=== PATIENT | male | born 1955 | race Caucasian/White ===

== ENCOUNTER → 2019-11-19 | Outpatient (CLI) | payer MEDICARE ==
--- NOTE | 2019-11-19 16:26 | MR ---
EXAMINATION TYPE: MR brain wo/w con DATE OF EXAM: 11/19/2019 COMPARISON: None HISTORY: Left hemiparesis, dizziness, hx stroke CONTRAST: Performed utilizing 10 mL intravenous Gadavist gadolinium contrast. TECHNIQUE: Multiplanar, multiecho imaging on a 3.0 Pari magnet is performed through the brain. Stud y is performed within 24 hours of arrival to the hospital. The craniovertebral junction is normal. The pituitary is normal. Optic chiasm is visualized is norm al Diffusion-weighted imaging is performed. No abnormal hyperintensity is present to suggest an acute i ntracranial infarct or acute ischemic change. There is an old infarct through the right watershed region. Ex vacuo effect may be present nearby sul ci and lateral ventricle. White matter changes are present within the residual brain. Scattered periventricular white matter hyperintensity is present which is nonspecific but can be comp atible with chronic white matter ischemic type changes. Ventricles and sulci are appropriate for the patient age. No abnormal enhancement is evident following contrast administration. There is significant fluid within mastoid air cells. Correlate for bilateral mastoiditis, worse on th e left. Paranasal sinuses have some mucosal thickening within ethmoid air cells and to a minimal degr ee the frontal sinuses. Remaining paranasal sinuses are clear. IMPRESSIONS: 1. Old right watershed infarct with some adjacent chronic appearing white matter ischemic changes. 2. Mild periventricular white matter ischemic changes. 3. No suspicious acute intracranial changes.
== END | disposition home or self-care (01) ==
LOC: RADMRIMAIN 07:54
PROVIDERS: ATTEND Internal Medicine Geriatric Medicine
DX: I63.89 Other cerebral infarction (principal); R90.82 White matter disease, unspecified
CPT/HCPCS: 70553; A9585

== ENCOUNTER → 2021-09-28 | Outpatient (CLI) | payer MEDICARE ==
--- NOTE | 2021-09-28 11:34 | US ---
EXAMINATION TYPE: US venous doppler duplex LE RT DATE OF EXAM: 09/28/2021 11:08 AM COMPARISON: NONE CLINICAL HISTORY: M79.604 PAIN IN RIGHT LEG. SIDE PERFORMED: Right TECHNIQUE: The lower extremity deep venous system is examined utilizing real time linear array sonog erich with graded compression, doppler sonography and color-flow sonography. VESSELS IMAGED: Common Femoral Vein Deep Femoral Vein Greater Saphenous Vein * Femoral Vein Popliteal Vein Small Saphenous Vein * Proximal Calf Veins (* superficial vessels) Right Leg: Negative for DVT IMPRESSION: No evidence for DVT at this time.
--- NOTE | 2021-09-28 11:54 | XR ---
EXAMINATION TYPE: XR knee complete RT DATE OF EXAM: 09/28/2021 CLINICAL HISTORY: pain TECHNIQUE: Three views of the right knee are obtained. COMPARISON: None. FINDINGS: There is no acute fracture/dislocation. The tri-compartment joint spaces appear within no rmal limits. The overlying soft tissue appears unremarkable. IMPRESSION: There is no acute fracture or dislocation.ICD 10 NO FRACTURE, INITIAL EVALUATION
== END | disposition home or self-care (01) ==
LOC: RADUSWWP 11:06
PROVIDERS: ATTEND Family Medicine
DX: M79.604 Pain in right leg (principal)

== ENCOUNTER → 2023-04-11 | Outpatient (CLI) | payer MEDICARE ==
--- NOTE | 2023-04-11 11:16 | XR ---
EXAMINATION TYPE: XR chest 2V DATE OF EXAM: 04/11/2023 11:07 AM CLINICAL INDICATION:Male, 68 years old with history of Z86.16 Personal hx of Covid; [facility] COMPARISON: Chest radiographs from 04/11/2023. TECHNIQUE: XR chest 2V Frontal and lateral views of the chest. FINDINGS: Lungs/Pleura: There is no evidence of pleural effusion, focal consolidation, or pneumothorax. Pulmonary vascularity: Unremarkable. Heart/mediastinum: Cardiomediastinal silhouette is enlarged and stable. Musculoskeletal: No acute osseous pathology. IMPRESSION: Chronic changes without acute pulmonary process. No significant change from prior.
== END | disposition home or self-care (01) ==
LOC: RADXRMAIN 10:44
PROVIDERS: ATTEND Internal Medicine Geriatric Medicine
DX: J98.4 Other disorders of lung (principal); Z86.16 Personal history of COVID-19
CPT/HCPCS: 71046

== ENCOUNTER 2024-03-04 07:12 | Inpatient (IN) | payer MEDICARE ==
[2024-03-04] MEDS: methylPREDNISolone SOD SUCCI 125 MG/2 ML VIAL IV STA (08:18)
[2024-03-04] MEDS: methylPREDNISolone SOD SUCCI 125 MG/2 ML VIAL IM ONE (08:19)
[2024-03-04] MEDS: ALBUTEROL HFA INHALER INHALATION STA (08:23)
--- NOTE | 2024-03-04 08:26 | ED ---
SOB HPI - General Source: patient Mode of arrival: ambulatory Limitations: no limitations - History of Present Illness MD Complaint: shortness of breath, pain with inspiration Onset/Timin -: days(s) <Nickolas Caballero - Last Filed: 03/04/24 16:54> <PawelalisonJuliette Ani - Last Filed: 03/05/24 08:42> - General Chief Complaint: Shortness of Breath Stated Complaint: Covid+ - History of Present Illness Initial Comments: This is a 69-year-old male presenting with shortness of breath, wheezing, fatigue and reproducible central chest pain with cough and deep inspiration x 5 days. Patient endorses recent return from [facility] around the time symptoms started. Patient endorses who tested positive for COVID-19 having symptoms several days prior to start of his symptoms. Patient endorses seeing primary care provider who provided azithromycin and prednisone patient noting ongoing symptoms despite near completion of regiment. Patient denies fever, chills, body aches, nasal congestion, sore throat, hemoptysis, N/V/D, headache. ( Nickolas Caballero) - Related Data Home Medications Medication Instructions Recorded Confirmed Atorvastatin [Lipitor] 40 mg PO DAILY 03/04/24 03/04/24 Azithromycin [Zithromax Z Pack] See Taper PO DIRECTED 03/04/24 03/04/24 Citalopram Hydrobromide [CeleXA] 40 mg PO DAILY 03/04/24 03/04/24 Codeine Phosphate/Guaifenesin 5 ml PO Q6H PRN 03/04/24 03/04/24 [Codeine Phosphate/Guaifenesin 10-100 mg/5 ml] Fluorouracil 5% Cream 1 dose TOPICAL DIRECTED 03/04/24 03/04/24 Fluticasone Nasal [place] [Flonase 2 spray EA NOSTRIL DAILY PRN 03/04/24 03/04/24 Nasal [place]] Meloxicam [Mobic] 7.5 mg PO BID 03/04/24 03/04/24 Montelukast [Singulair] 10 mg PO HS 03/04/24 03/04/24 Propranolol HCl [Propranolol HCl 80 mg PO DAILY 03/04/24 03/04/24 ER] Triamcinolone 0.5% Cream [Kenalog 1 applic TOPICAL Q72H PRN 03/04/24 03/04/24 0.5% Cream] metFORMIN HCL 500 mg PO BID 03/04/24 03/04/24 predniSONE [Deltasone] 40 mg PO DAILY 03/04/24 03/04/24 rOPINIRole HCL [Requip] 1 mg PO BID 03/04/24 03/04/24 Previous Rx's Medication Instructions Recorded Albuterol Inhaler [Ventolin Hfa 1 - 2 puff INHALATION Q6H PRN #1 03/04/24 Inhaler] each predniSONE 10 mg PO DIRECTED #20 tab 03/04/24 Allergies Allergy/AdvReac Type Severity Reaction Status Date / Time No Known Allergies Allergy Verified 03/04/24 11:10 Review of Systems ROS Other: All systems not noted in ROS Statement are negative. <Nickolas Caballero - Last Filed: 03/04/24 16:54> ROS Other: All systems not noted in ROS Statement are negative. <Juliette Boone - Last Filed: 03/05/24 08:42> ROS Statement: Those systems with pertinent positive or pertinent negative responses have been documented in the HPI. Past Medical History Past Medical History: CVA/TIA, Hyperlipidemia, Hypertension, Neurologic Disorder Additional Past Medical History / Comment(s): Neuropathy, allergies Past Surgical History: Cholecystectomy, Orthopedic Surgery Past Psychological History: Depression Smoking Status: Former smoker Past Alcohol Use History: Occasional Past Drug Use History: None Reported <Nickolas Caballero - Last Filed: 03/04/24 16:54> General Exam Limitations: no limitations General appearance: alert, in no apparent distress Head exam: Present: atraumatic, normocephalic, normal inspection Eye exam: Present: normal appearance, PERRL, EOMI. Absent: scleral icterus, conjunctival injection, periorbital swelling ENT exam: Present: normal exam, mucous membranes moist Neck exam: Present: normal inspection. Absent: tenderness, meningismus, lymphadenopathy Respiratory exam: Present: wheezes, rhonchi, decreased breath sounds (Diminished breath sounds with coarse rhonchi, expiratory wheezing and prolonged expiration noted in all [place]), prolonged expiratory. Absent: respiratory distress, rales, stridor Cardiovascular Exam: Present: regular rate, normal rhythm, normal heart sounds. Absent: systolic murmur, diastolic murmur, rubs, gallop, clicks GI/Abdominal exam: Present: soft, normal bowel sounds. Absent: distended, tenderness, guarding, rebound, rigid Extremities exam: Present: normal inspection, full ROM, normal capillary refill. Absent: tenderness, pedal edema, joint swelling, calf tenderness Back exam: Present: normal inspection Neurological exam: Present: alert, oriented X3, CN II-XII intact Psychiatric exam: Present: normal affect, normal mood Skin exam: Present: warm, dry, intact, normal color. Absent: rash <Nickolas Caballero - Last Filed: 03/04/24 16:54> Course Vital Signs 03/04/24 03/04/24 03/04/24 07:20 08:04 08:48 Temperature 97.9 F 98.4 F Pulse Rate 48 L 54 L 46 L Respiratory 20 24 22 Rate Blood Pressure 201/91 188/117 179/85 O2 Sat by Pulse 94 L 93 L 93 L Oximetry 03/04/24 03/04/24 03/04/24 09:08 09:21 09:29 Temperature Pulse Rate 54 L 50 L 53 L Respiratory 24 Rate Blood Pressure O2 Sat by Pulse 96 Oximetry 03/04/24 03/04/24 03/04/24 09:45 09:57 10:36 Temperature Pulse Rate 51 L 49 L Respiratory 20 20 Rate Blood Pressure 172/89 O2 Sat by Pulse 95 Oximetry 03/04/24 03/04/24 03/04/24 10:45 11:00 12:04 Temperature Pulse Rate 49 L 50 L 46 L Respiratory 18 18 Rate Blood Pressure 171/91 110/92 O2 Sat by Pulse 96 89 L Oximetry 03/04/24 03/04/24 03/04/24 16:07 20:22 20:30 Temperature 98.3 F Pulse Rate 55 L 55 L Respiratory 18 20 21 Rate Blood Pressure 174/90 189/97 O2 Sat by Pulse 94 L 92 L Oximetry Medical Decision Making - Lab Data Result diagrams: 03/04/24 15:43 03/04/24 15:43 <Nickolas Caballero - Last Filed: 03/04/24 16:54> - Lab Data Result diagrams: 03/05/24 03:14 03/04/24 15:43 <Juliette Boone - Last Filed: 03/05/24 08:42> - Medical Decision Making Was pt. sent in by a medical professional or institution (Dr., PA, PARTNER MANAGEMENT CONSULTANT, urgent care, hospital, or senior care...) When possible be specific @ -No Did you speak to anyone other than the patient for history (EMS, parent, family, police, friend...)? What history was obtained from this source @ -No Did you review nursing and triage notes (agree or disagree)? Why? @ -I reviewed and agree with nursing and triage notes Were old charts reviewed (outside hosp., previous admission, EMS record, old EKG, old radiological studies, urgent care reports/EKG's, senior care records)? Report findings @ -No old charts were reviewed Differential Diagnosis (chest pain, altered mental status, abdominal pain women, abdominal pain men, vaginal bleeding, weakness, fever, dyspnea, syncope, headache, dizziness, GI bleed, back pain, seizure, CVA, palpatations, mental health, musculoskeletal)? @ -Upper respiratory infection, COVID-19, influenza, bronchitis, pneumonia, tuberculosis, croup EKG interpreted by me (3pts min.). @ -Not done X-rays interpreted by me (1pt min.). @ -Chest x-ray reveals no focal consolidation or other concerning findings. CT interpreted by me (1pt min.). @ -None done U/S interpreted by me (1pt. min.). @ -None done What testing was considered but not performed or refused? (CT, X-rays, U/S, labs)? Why? @ -None What meds were considered but not given or refused? Why? @ -None Did you discuss the management of the patient with other professionals (professionals i.e. KALEY Rosario, PARTNER MANAGEMENT CONSULTANT, lab, RT, psych nurse, social security benefits interviewer, final dressing cutter, teacher, licensed loan officer, caser up)? Give summary @ -Spoke to patient's primary care Dr. Garza who advised continue Solu-Medrol 40 mg IV every 6-8 hours and appropriately manage nasal cannula O2 concentration to maintain oxygen saturation. Was smoking cessation discussed for >3mins.? @ -No Was critical care preformed (if so, how long)? @ -No Were there social determinants of health that impacted care today? How? (Homelessness, low income, unemployed, alcoholism, drug addiction, transportation, low edu. Level, literacy, decrease access to med. care, fdc, rehab)? @ -No Was there de-escalation of care discussed even if they declined (Discuss DNR or withdrawal of care, Hospice)? DNR status @ -No What co-morbidities impacted this encounter? (DM, HTN, Smoking, COPD, CAD, Cancer, CVA, ARF, Chemo, Hep., AIDS, mental health diagnosis, sleep apnea, morbid obesity)? @ -None Was patient admitted / discharged? Hospital course, mention meds given and route, prescriptions, significant lab abnormalities, going to OR and other pertinent info. @ -Admitted. Safa test negative chest x-ray unremarkable. Patient notes improvement with Solu-Medrol IM and nasal cannula at 2 L. DuoNeb nebulized treatment performed after confirming negative COVID test. Patient notes improved work of breathing following treatments. Prednisone taper sent to pharmacy. Patient continues to have SpO2 between 88 and 92% on nasal cannula supplementation despite previous medications given patient will be admitted due to ongoing hypoxemia despite interventions. Undiagnosed new problem with uncertain prognosis? @ -Yes. Hypoxemia Drug Therapy requiring intensive monitoring for toxicity (Heparin, Nitro, Insulin, Cardizem)? @ -No Were any procedures done? @ -No Diagnosis/symptom? @ -Acute bronchitis, hypoxemia Acute, or Chronic, or Acute on Chronic? @ -Acute Uncomplicated (without systemic symptoms) or Complicated (systemic symptoms)? @ -Complicated Side effects of treatment? @ -No Exacerbation, Progression, or Severe Exacerbation? @ -No Poses a threat to life or bodily function? How? (Chest pain, [place], IA, pneumonia, PE, COPD, DKA, ARF, appy, cholecystitis, CVA, Diverticulitis, Homicidal, Suicidal, threat to staff... and all critical care pts) @ -No (Nickolas Caballero) - Lab Data Lab Results 03/04/24 Range/Units 08:13 Influenza Type A (PCR) Not Detected (Not Detectd) Influenza Type B (PCR) Not Detected (Not Detectd) RSV (PCR) Not Detected (Not Detectd) SARS-CoV-2 (PCR) Not Detected (Not Detectd) Disposition Is patient prescribed a controlled substance at d/c from ED?: No Time of Disposition: 11:46 Decision Date: 03/04/24 Decision Time: 13:15 <Nickolas Caballero - Last Filed: 03/04/24 16:54> <Juliette Boone - Last Filed: 03/05/24 08:42> Clinical Impression: Bronchitis, Hypoxemia Disposition: ADMITTED IP TO THIS HOSP Condition: Fair
--- NOTE | 2024-03-04 08:57 | XR ---
EXAMINATION TYPE: XR chest 2V DATE OF EXAM: 03/04/2024 COMPARISON: 04/11/2023 HISTORY: Shortness of breath TECHNIQUE: Frontal and lateral views of the chest are obtained. FINDINGS: Scattered senescent parenchymal changes noted. Hyperinflation compatible with COPD. No evidence for infiltrate. No evidence for atelectasis. Heart size is stable. Mediastinal structures are stable and grossly unremarkable. No evidence for hilar prominence. Degenerative changes dorsal spine. IMPRESSION: 1. No evidence for acute pulmonary disease. [facility], , 03/04/2024 8:55 AM
[2024-03-04] MEDS: IPRATROPIUM-ALBUTEROL 3 ML NEB INHALATION STA (09:21)
[2024-03-04] MEDS: ALBUTEROL NEBULIZED 2.5 MG/3 ML INHALATION STA (10:36)
[2024-03-04] MEDS: methylPREDNISolone SOD SUCCI 40 MG/ML 1 ML VIAL IV SCH (16:09)
[2024-03-04 16:23] LABS: Basophils % (A) 0 %; Eosinophils % (A) 0 %; HCT 47.7 % (39.0-53.0); HGB 16.3 gm/dL (13.0-17.5); Lymphocytes # (A) 1.1 k/uL (1.0-4.8); Lymphocytes % (A) 12 %; MCH 32.8 pg (25.0-35.0); MCHC 34.2 g/dL (31.0-37.0); MCV 95.8 fL (80.0-100.0); Mean Platelet Volume 10.4; Monocytes # (A) 0.2 k/uL (0-1.0); Monocytes % (A) 2 %; Neutrophils # (A) 8.2 k/uL (1.3-7.7); Neutrophils % (A) 86 %; Platelet Count 200 k/uL (150-450); RBC 4.97 m/uL (4.30-5.90); RDW 13.5 % (11.5-15.5); WBC 9.6 k/uL (3.8-10.6)
[2024-03-04 16:27] LABS: ALT 47 U/L (4-49); AST 35 U/L (17-59); African American GFR (CKD) >90 (>60 ml/min/1.73 sqM); Albumin 4.4 g/dL (3.5-5.0); Alkaline Phosphatase 76 U/L (38-126); Anion Gap 14 mmol/L; Blood Urea Nitrogen 19 mg/dL (9-20); Calcium 9.2 mg/dL (8.4-10.2); Carbon Dioxide 20 mmol/L (22-30); Chloride 104 mmol/L (98-107); Glucose 216 mg/dL (74-99); Non-African American GFR(CKD) >90 (>60 ml/min/1.73 sqM); Sodium 138 mmol/L (137-145); Total Bilirubin 0.9 mg/dL (0.2-1.3); Total Protein 7.1 g/dL (6.3-8.2)
[2024-03-04] MEDS: AZITHROMYCIN 500 MG TAB PO SCH (17:25)
[2024-03-04] MEDS: metFORMIN 500 MG TAB PO SCH (17:32)
[2024-03-04] MEDS: MAGNESIUM SULFATE-D5W PMX 1 GM in DEXTROSE/WATER 1 100ML.BAG IVPB ONE (18:42)
[2024-03-04] MEDS: FUROSEMIDE 10 MG/ML 2 ML VIAL IV ONE (19:36)
[2024-03-04 20:52] LABS: Glucose,Whole Blood 174 mg/dL (70-110)
[2024-03-04] MEDS: MONTELUKAST 10 MG TAB PO SCH (21:29)
[2024-03-04] MEDS: MELOXICAM 7.5 MG TAB PO SCH (21:30)
[2024-03-04] MEDS: INSULIN ASPART (NovoLOG) 100 UNIT/ML VIAL SQ SCH ×2 (21:31→22:16)
[2024-03-04] MEDS: hydrALAZINE HCL 25 MG TAB PO PRN (21:55)
[2024-03-04] MEDS: ZOLPIDEM 5 MG TAB PO SCH (21:55)
--- NOTE | 2024-03-04 22:22 | P.HPIM ---
History of Present Illness H&P Date: 03/04/24 Chief Complaint: Severe dyspnea and shortness of breath with severe hypoxia HISTORY OF PRESENT ILLNESS: 69-year-old with active medical history of CVA with right-sided weakness, hypertension, hyperlipidemia, mild arrhythmia, obstructive sleep apnea, mild tremor, hyperglycemia, who also has mild BPH and mild osteoarthritis was apparently clip to systole easily this last week when he becomes slightly with symptomatic for the last 5 days with mild shortness of breath cough and wheezes with mild nausea and fatigue tiredness. Patient's become symptomatic as well and tested positive for COVID-19 patient was not symptomatic at the time. Patient apparently tested negative for COVID-19 1 trial last 24 hours but has been symptomatic for a bit longer time at the time did not have any significant dyspnea more than fatigue tiredness mild cough and URI symptoms like. With the worsening symptoms today not been able to walk or ambulate without severe dyspnea and shortness of breath with worsening cough low-grade temperature and hypoxia ended up coming to the emergency department where was seen and evaluated Lab value shows white blood cell of 9.6 hemoglobin 16.3 hematocrit 47.7 with normal platelet count, electrolyte panel did not show any major abnormality except blood sugar 216 normal BNP normal liver function test. Serology for influenza A and influenza B along with RSV and SARS were all negative. After few rounds of updraft treatment continue to have tightness wheezy and significant shortness of breath ended up coming to the emergency department him and his were he was seen and evaluated surprisingly his pulse ox initially was in the 80s despite oxygen, pulse rate jumped over the map with the adjusted dose of O2, working hard to keep pulse ox above 95 percentile. REVIEW OF SYSTEMS: CONSTITUTIONAL: Well-developed no acute respiratory distress. EYES: No icterus sclerae, no conjunctivitis. EARS, NOSE, MOUTH, THROAT, and FACE: No sore throat, lymphadenopathy, carotid bruits or deformity. RESPIRATORY: Decreased breath sound bilaterally with rhonchi and crackles CARDIOVASCULAR: No CP, Palpitation, PND, Orthopnea, or angina. GASTROINTESTINAL: No Abd pain, Nausea or vomiting, no Diarrhea or constipation, No GI Bleed, no distention or masses. GENITOURINARY: Negative for Hematuria or UTI, no kidney stones. INTEGUMENT/BREAST: Negative for any muscular injury with mild osteoarthritis.. HEMATOLOGIC/LYMPHATIC: Negative for bleed or purpura. MUSCULOSKELTAL: Negative for Myalgia or arthralgia. NEURLOGICAL: No LOC, Sz or syncope, blurred vision dizziness or abnormality.. BEHAVIORAL/PSYCH: Negative. ENDOCRINE: Negative. PHYSICAL EXAMINATION: General Appearance: Alert, cooperative, no distress, appears stated age. Neck HEENT: Supple, no lymphadenopathy, no thyroid enlargement, no carotid bruits. Lungs: Clear to auscultation without crackles or wheezes no rhonchi, no deformity. Chest Wall: Chest wall normal expansion with deep inspiration no tenderness and no deformity was found on exam, no costochondral pain or discomfort. Heart: Regular rate and rhythm, S1, S2 normal, no murmur, rub or gallop. Back: Symmetric, no curvature, ROM normal, no CVA tenderness. Abdomen: Soft, non-tender, bowel sounds active all four quadrants, no masses, no organomegaly. Extremities: Extremities normal, atraumatic, no cyanosis or edema. Pulses: 2+ and symmetric. Skin: Skin color, texture, tugor normal, no rashes or lesions. Neurologic: Alert oriented x3 cranial nerves II through XII intact, no motor deficit, no abnormal balance or gait. ASSESSMENT AND PLAN: _Severe dyspnea and shortness of breath: Medical etiology most likely residual from COVID-19 infection happened last week, even his test is negative does not exclude the possibility. Specially with the tested positive for COVID-19. _Acute respiratory failure: Most likely secondary to severe bronchitis, mild asthma and COVID-19. _Severe bronchitis: Patient will be continued on azithromycin along with Mucinex. _Mild COPD exacerbation: Continue Solu-Medrol along with O2 titrate dose if needed and keep patient on oral prednisone for the next probably 10 to 12 days. _Essential hypertension: Will continue propranolol HCL 80 mg daily will change medication and add either losartan or hydralazine on as-needed basis. _Type 2 diabetes: Has been well-controlled on metformin 500 mg twice a day to continue Accu-Chek and sliding scales coverage. _Restless leg syndrome: Remain on Requip 1 mg twice a day. _Hyperlipidemia: Continue patient on Lipitor 40 mg daily. _Tremor: Mostly essential tremor, well-controlled on propranolol. _Obstructive sleep apnea: Has been study does not have CPAP yet. _Low-grade polycythemia: Mostly secondary to COPD and probably obstructive sleep apnea treat underlying disease. _GI prophylaxis: Start patient on pantoprazole 40 mg daily. _DVT prophylaxis: Patient be on Lovenox subcutaneous. CODE STATUS: Full code Admit patient to the inpatient service for more than 2 night stay. Past Medical History Past Medical History: CVA/TIA, Hyperlipidemia, Hypertension, Neurologic Disorder Additional Past Medical History / Comment(s): Neuropathy, allergies Past Surgical History: Cholecystectomy, Orthopedic Surgery Past Psychological History: Depression Smoking Status: Former smoker Past Alcohol Use History: Occasional Past Drug Use History: None Reported Medications and Allergies Home Medications Medication Instructions Recorded Confirmed Type Albuterol Inhaler [Ventolin Hfa 1 - 2 puff INHALATION Q6H PRN #1 03/04/24 Rx Inhaler] each Atorvastatin [Lipitor] 40 mg PO DAILY 03/04/24 03/04/24 History Azithromycin [Zithromax Z Pack] See Taper PO DIRECTED 03/04/24 03/04/24 History Citalopram Hydrobromide [CeleXA] 40 mg PO DAILY 03/04/24 03/04/24 History Codeine Phosphate/Guaifenesin 5 ml PO Q6H PRN 03/04/24 03/04/24 History [Codeine Phosphate/Guaifenesin 10-100 mg/5 ml] Fluorouracil 5% Cream 1 dose TOPICAL DIRECTED 03/04/24 03/04/24 History Fluticasone Nasal [place] [Flonase 2 spray EA NOSTRIL DAILY PRN 03/04/24 03/04/24 History Nasal [place]] Meloxicam [Mobic] 7.5 mg PO BID 03/04/24 03/04/24 History Montelukast [Singulair] 10 mg PO HS 03/04/24 03/04/24 History Propranolol HCl [Propranolol HCl 80 mg PO DAILY 03/04/24 03/04/24 History ER] Triamcinolone 0.5% Cream [Kenalog 1 applic TOPICAL Q72H PRN 03/04/24 03/04/24 History 0.5% Cream] metFORMIN HCL 500 mg PO BID 03/04/24 03/04/24 History predniSONE 10 mg PO DIRECTED #20 tab 03/04/24 Rx predniSONE [Deltasone] 40 mg PO DAILY 03/04/24 03/04/24 History rOPINIRole HCL [Requip] 1 mg PO BID 03/04/24 03/04/24 History Allergies Allergy/AdvReac Type Severity Reaction Status Date / Time No Known Allergies Allergy Verified 03/04/24 11:10 Physical Exam Vitals: Vital Signs Temp Pulse Resp BP Pulse Ox 03/04/24 16:07 55 L 18 174/90 94 L 03/04/24 12:04 46 L 18 110/92 89 L 03/04/24 11:00 50 L 18 171/91 96 03/04/24 10:45 49 L 03/04/24 10:36 49 L 03/04/24 09:57 20 03/04/24 09:45 51 L 20 172/89 95 03/04/24 09:29 53 L 03/04/24 09:21 50 L 03/04/24 09:08 54 L 24 96 03/04/24 08:48 46 L 22 179/85 93 L 03/04/24 08:04 98.4 F 54 L 24 188/117 93 L 03/04/24 07:20 97.9 F 48 L 20 201/91 94 L Intake and Output 03/04/24 03/04/24 03/04/24 06:59 14:59 22:59 Other: Weight 104.326 kg Results CBC & Chem 7: 03/04/24 15:43 03/04/24 15:43 Labs: Abnormal Lab Results - Last 24 Hours (Table) 03/04/24 03/04/24 Range/Units 15:43 15:43 Neutrophils # 8.2 H (1.3-7.7) k/uL Carbon Dioxide 20 L (22-30) mmol/L Glucose 216 H (74-99) mg/dL
[2024-03-05 06:16] LABS: Glucose,Whole Blood 213 mg/dL (70-110)
[2024-03-05] MEDS: PROPRANOLOL LA 80 MG CAP.SA.24H PO SCH (08:27)
[2024-03-05] MEDS: ATORVASTATIN 40 MG TAB PO SCH (08:27)
[2024-03-05] MEDS: ENOXAPARIN 40 MG/0.4 ML SYRINGE SQ SCH (08:27)
[2024-03-05] MEDS: CITALOPRAM HYDROBROMIDE 20 MG TAB PO SCH (08:27)
[2024-03-05 08:36] LABS: HCT 45.3 % (39.6-50.0); HGB 15.9 g/dL (13.0-17.0); MCH 32.6 pg (27.0-32.0); MCHC 35.1 g/dL (32.0-37.0); Mean Platelet Volume 12.4 FL (9.5-12.2); NRBC Per 100 WBC 0 X 10*3/uL (0.00-0.01); Platelet Count 211 X 10*3/uL (140-440); RBC 4.87 X 10*6/uL (4.40-5.60); WBC 10.59 X 10*3/uL (4.50-10.00)
[2024-03-05 08:50] LABS: ALT 44 U/L (10-49); AST 26 U/L (14-35); Albumin 4.2 g/dL (3.8-4.9); Albumin/Globulin Ratio 1.75 Ratio (1.60-3.17); Alkaline Phosphatase 85 U/L (41-126); BUN/Creat Ratio 29.62 Ratio (12.00-20.00); Blood Urea Nitrogen 23.7 mg/dL (9.0-27.0); Calcium 9.1 mg/dL (8.7-10.3); Carbon Dioxide 23.7 mmol/L (21.6-31.8); Chloride 103 mmol/L (96-109); Globulin 2.4 g/dL (1.6-3.3); Glucose 167 mg/dL (70-110); Sodium 139 mmol/L (135-145); Total Bilirubin 0.5 mg/dL (0.3-1.2); Total Protein 6.6 g/dL (6.2-8.2)
[2024-03-05] MEDS ORDERED: DEXAMETHASONE SOD PHOSPHATE 4 MG/ML 1 ML VIAL IVP PRN (10:19)
[2024-03-05 11:15] LABS: Glucose,Whole Blood 186 mg/dL (70-110)
[2024-03-05] MEDS: ALBUTEROL NEBULIZED 2.5 MG/3 ML INHALATION SCH (11:38)
--- NOTE | 2024-03-05 11:42 | P.CNPUL ---
History of Present Illness Consult date: 03/05/24 Requesting physician: Thomas Montez Reason for consult: dyspnea, cough Chief complaint: Shortness of breath, cough, congestion History of present illness: This is a pleasant 69-year-old male patient with a known history of CVA/TIA, hypertension, hyperlipidemia, neuropathy, former smoker. He had recently traveled to [facility] and upon return he and his were both sick. She had tested positive for COVID initially and he was negative then yesterday at home test tested positive. He came into the emergency room with increasing shortness of breath, cough and congestion. His COVID test here was negative. Influenza screen negative. RSV screen negative. Chest x-ray shows no acute pulmonary process. White count 10.5. Hemoglobin 15.9. Platelets 211. Sodium 139. Potassium 4.0. Bicarb 24. BUN 24. Creatinine 0.8. Glucose 167. D-dimer 0.47. Procalcitonin negative at 0.02. He is seen today in consultation on the regular medical floor. Currently sitting up in bed. Alert and alert in no acute distress. Maintaining O2 saturations in the 90s on 3 L/min per nasal cannula. He is afebrile. He is currently on Symbicort, albuterol, Decadron, Singulair. Lovenox for DVT prophylaxis. Review of Systems REVIEW OF SYSTEMS: CONSTITUTIONAL: Denies any recent significant weight loss or weight gain. EYES: Denies change in vision. EARS, NOSE, MOUTH, THROAT: Denies headaches, denies sore throat. CARDIOVASCULAR: Denies chest pain, palpitations or syncopal episodes. RESPIRATORY: Positive for shortness of breath, cough, congestion no hemoptysis. GASTROINTESTINAL: Denies change in appetite, denies abdominal pain GENITOURINARY: Denies hematuria, denies infections. MUSKULOSKELETAL: Denies pain, denies swelling. INTEGUMENTARY: Denies rash, denies eczema. NEUROLOGICAL: Denies recent memory loss, no recent seizure activity. PSYCHIATRIC: Denies anxiety, denies depression. HEMATOLOGIC/LYMPHATIC: Denies anemia, denies enlarged lymph nodes. Past Medical History Past Medical History: CVA/TIA, Hyperlipidemia, Hypertension, Neurologic Disorder Additional Past Medical History / Comment(s): Neuropathy, allergies History of Any Multi-Drug Resistant Organisms: None Reported Past Surgical History: Cholecystectomy, Orthopedic Surgery Additional Past Surgical History / Comment(s): BLE sampson with treatment at the wound center, tubes bilateral eas Past Anesthesia/Blood Transfusion Reactions: No Reported Reaction Past Psychological History: Depression Smoking Status: Former smoker Past Alcohol Use History: Occasional Past Drug Use History: None Reported Medications and Allergies Home Medications Medication Instructions Recorded Confirmed Type Albuterol Inhaler [Ventolin Hfa 1 - 2 puff INHALATION Q6H PRN #1 03/04/24 Rx Inhaler] each Atorvastatin [Lipitor] 40 mg PO DAILY 03/04/24 03/04/24 History Azithromycin [Zithromax Z Pack] See Taper PO DIRECTED 03/04/24 03/04/24 History Citalopram Hydrobromide [CeleXA] 40 mg PO DAILY 03/04/24 03/04/24 History Codeine Phosphate/Guaifenesin 5 ml PO Q6H PRN 03/04/24 03/04/24 History [Codeine Phosphate/Guaifenesin 10-100 mg/5 ml] Fluorouracil 5% Cream 1 dose TOPICAL DIRECTED 03/04/24 03/04/24 History Fluticasone Nasal [place] [Flonase 2 spray EA NOSTRIL DAILY PRN 03/04/24 03/04/24 History Nasal [place]] Meloxicam [Mobic] 7.5 mg PO BID 03/04/24 03/04/24 History Montelukast [Singulair] 10 mg PO HS 03/04/24 03/04/24 History Propranolol HCl [Propranolol HCl 80 mg PO DAILY 03/04/24 03/04/24 History ER] Triamcinolone 0.5% Cream [Kenalog 1 applic TOPICAL Q72H PRN 03/04/24 03/04/24 History 0.5% Cream] metFORMIN HCL 500 mg PO BID 03/04/24 03/04/24 History predniSONE 10 mg PO DIRECTED #20 tab 03/04/24 Rx predniSONE [Deltasone] 40 mg PO DAILY 03/04/24 03/04/24 History rOPINIRole HCL [Requip] 1 mg PO BID 03/04/24 03/04/24 History Allergies Allergy/AdvReac Type Severity Reaction Status Date / Time No Known Allergies Allergy Verified 03/04/24 11:10 Physical Exam Vitals: Vital Signs Temp Pulse Pulse Resp BP BP Pulse Ox 03/05/24 06:48 97.9 F 69 20 181/99 93 L 03/05/24 03:20 64 19 177/85 93 L 03/05/24 01:23 98.2 F 70 20 147/69 91 L 03/04/24 20:30 21 03/04/24 20:22 98.3 F 55 L 20 189/97 92 L 03/04/24 16:07 55 L 18 174/90 94 L 03/04/24 12:04 46 L 18 110/92 89 L Intake and Output 03/04/24 03/05/24 03/05/24 22:59 06:59 14:59 Intake Total 960 Balance 960 Intake: Oral 960 Other: Voiding Method Toilet # Voids 3 Weight 104.326 kg GENERAL EXAM: Alert, pleasant 69-year-old male, on 3 L nasal cannula, c omfortable in no apparent distress. HEAD: Normocephalic. EYES: Normal reaction of pupils, equal size. NOSE: Clear with pink turbinates. THROAT: No erythema or exudates. NECK: No masses, no JVD. CHEST: No chest wall deformity. LUNGS: Equal air entry with bilateral scattered rhonchi. CVS: S1 and S2 normal with no audible murmur, regular rhythm. ABDOMEN: No hepatosplenomegaly, normal bowel sounds, no guarding or rigidity. SPINE: No scoliosis or deformity SKIN: No rashes CENTRAL NERVOUS SYSTEM: No focal deficits, tone is normal in all 4 extremities. EXTREMITIES: There is no peripheral edema. No clubbing, no cyanosis. Peripheral pulses are intact. Results - Laboratory Findings CBC and BMP: 03/05/24 03:14 03/05/24 03:14 PT/INR, D-dimer D-Dimer 0.47 mg/L FEU (<0.60) 03/04/24 17:10 Abnormal lab findings: Abnormal Labs 03/04/24 03/04/24 03/04/24 15:43 15:43 15:43 WBC MCH MPV Neutrophils # 8.2 H Carbon Dioxide 20 L Anion Gap BUN/Creatinine Ratio Glucose 216 H POC Glucose (mg/dL) NT-Pro-B Natriuret Pep 444 H 03/04/24 03/05/24 03/05/24 20:51 03:14 03:14 WBC 10.59 H MCH 32.6 H MPV 12.4 H Neutrophils # Carbon Dioxide Anion Gap 12.30 H BUN/Creatinine Ratio 29.62 H Glucose 167 H POC Glucose (mg/dL) 174 H NT-Pro-B Natriuret Pep 03/05/24 03/05/24 06:14 11:13 WBC MCH MPV Neutrophils # Carbon Dioxide Anion Gap BUN/Creatinine Ratio Glucose POC Glucose (mg/dL) 213 H 186 H NT-Pro-B Natriuret Pep - Diagnostic Findings Chest x-ray: image reviewed Assessment and Plan Assessment: Acute hypoxic respiratory failure secondary to an acute tracheobronchitis. Viral screen negative. Procalcitonin negative Former smoker with some possible underlying COPD History of CVA/TIA Hypertension Hyperlipidemia Neuropathy History of depression Diabetes mellitus Plan: The patient was seen and evaluated Chest x-ray, labs and medications reviewed Procalcitonin negative, COVID screen negative Add Symbicort and albuterol Continue Decadron for 10 days Lovenox for DVT prophylaxis Titrate down the FiO2 as tolerated Increase his activity as tolerated We will continue to follow and make further recommendations based on his clinical status I have personally seen and examined the patient, performed the documentation and the assessment and plan as written. Number of minutes spent on the visit: 20.
[2024-03-05] MEDS: LINAGLIPTIN 5 MG TABLET PO SCH (11:56)
[2024-03-05 16:33] LABS: Glucose,Whole Blood 230 mg/dL (70-110)
--- NOTE | 2024-03-05 17:54 | CA ---
Transthoracic Echo Report Name: Domo Villegas Age: 69 Gender: M : 1955 Exam Date: 03/05/2024 10:28 Exam Location: [facility] Ht (in): 70 Wt (lb): 230 Ordering Physician: Thomas Montez MD Attending/Referring Phys: Director Of Speech Pathology Camelia Pedraza RDCS Procedure CPT: Indications: lvfunction Cardiac Hx: Technical Quality: Fair Contrast 1: Total Dose (mL): Contrast 2: Total Dose (mL): MEASUREMENTS (Male / Female) Normal Values 2D ECHO LV Diastolic Diameter PLAX 5.0 cm 4.2 - 5.9 / 3.9 - 5.3 cm LV Systolic Diameter PLAX 2.8 cm IVS Diastolic Thickness 1.2 cm 0.6 - 1.0 / 0.6 - 0.9 cm LVPW Diastolic Thickness 1.6 cm 0.6 - 1.0 / 0.6 - 0.9 cm LV Relative Wall Thickness 0.6 RV Internal Dim ED PLAX 4.3 cm LA Volume 111.4 cm??? 18 - 58 / 22 - 52 cm??? LA Volume Index 48.4 cm???/m??? 16 - 28 cm???/m??? M-MODE Aortic Root Diameter MM 3.6 cm LA Systolic Diameter MM 5.8 cm LA Ao Ratio MM 1.6 AV Cusp Separation MM 2.2 cm DOPPLER AV Peak Velocity 199.9 cm/s AV Peak Gradient 16.0 mmHg AV Mean Velocity 136.0 cm/s AV Mean Gradient 8.1 mmHg AV Velocity Time Integral 44.0 cm AI Peak Velocity 449.1 cm/s AI Peak Gradient 80.7 mmHg AI Pressure Half Time 587.1 ms LVOT Peak Velocity 128.6 cm/s LVOT Peak Gradient 6.6 mmHg LVOT Velocity Time Integral 29.7 cm MV Area PHT 3.1 cm??? Mitral E Point Velocity 109.7 cm/s Mitral A Point Velocity 57.6 cm/s Mitral E to A Ratio 1.9 MV Deceleration Time 247.6 ms MV E' Velocity 5.0 cm/s Mitral E to MV E' Ratio 21.8 TR Peak Velocity 303.3 cm/s TR Peak Gradient 36.8 mmHg Right Ventricular Systolic Press 40.8 mmHg FINDINGS Left Ventricle Mildly increased septal wall thickness. Left ventricular cavity size normal. Normal left ventricular systolic function with no obvious regional wall motion abnormalities. Left ventricular ejection fraction is estimated at 55-60 %. Grade 2 diastolic dysfunction. Right Ventricle Normal right ventricular size and function. Mild pulmonary hypertension. Right Atrium Normal right atrial size. Left Atrium Severely increased left atrial volume. Moderately increased left atrial area. Mitral Valve Structurally normal mitral valve. Mitral valve thickened. Mild mitral annular calcification. Mild to Moderate mitral regurgitation. Aortic Valve Trileaflet aortic valve. No aortic stenosis. Mild aortic regurgitation. Tricuspid Valve Structurally normal tricuspid valve. Mild tricuspid regurgitation. Pulmonic Valve Structurally normal pulmonic valve. Pericardium No pericardial effusion. Echo free space anterior to the right ventricle likely represents a fat pad. Aorta Normal size aortic root and proximal ascending aorta. CONCLUSIONS 1. Normal left ventricular size and systolic function 2. Mild to moderate mitral regurgitation 3. Mild aortic regurgitation 4. Mild tricuspid regurgitation and mild pulmonary hypertension Previewed by: Dr. Juancarlos Patterson MD (Electronically Signed) Final Date: 05 March 2024 17:52
[2024-03-05 19:35] LABS: Glucose,Whole Blood 121 mg/dL (70-110)
[2024-03-05] MEDS: SYMBICORT 160-4.5 MCG INHALER INHALATION SCH (20:06)
[2024-03-05] MEDS: ZOLPIDEM 5 MG TAB PO SCH (20:18)
[2024-03-05] MEDS: diphenhydrAMINE 25 MG CAP PO SCH (20:19)
--- NOTE | 2024-03-05 21:27 | P.PN ---
Subjective Progress Note Date: 03/05/24 HISTORY OF PRESENT ILLNESS: 69-year-old with active medical history of CVA with right-sided weakness, hypertension, hyperlipidemia, mild arrhythmia, obstructive sleep apnea, mild t remor, hyperglycemia, who also has mild BPH and mild osteoarthritis was apparently clip to systole easily this last week when he becomes slightly with symptomatic for the last 5 days with mild shortness of breath cough and wheezes with mild nausea and fatigue tiredness. Patient's become symptomatic as well and tested positive for COVID-19 patient was not symptomatic at the time. Patient apparently tested negative for COVID-19 1 trial last 24 hours but has been symptomatic for a bit longer time at the time did not have any significant dyspnea more than fatigue tiredness mild cough and URI symptoms like. With the worsening symptoms today not been able to walk or ambulate without severe dyspnea and shortness of breath with worsening cough low-grade temperature and hypoxia ended up coming to the emergency department where was seen and evaluated Lab value shows white blood cell of 9.6 hemoglobin 16.3 hematocrit 47.7 with normal platelet count, electrolyte panel did not show any major abnormality except blood sugar 216 normal BNP normal liver function test. Serology for influenza A and influenza B along with RSV and SARS were all negative. After few rounds of updraft treatment continue to have tightness wheezy and significant shortness of breath ended up coming to the emergency department him and his were he was seen and evaluated surprisingly his pulse ox initially was in the 80s despite oxygen, pulse rate jumped over the map with the adjusted dose of O2, working hard to keep pulse ox above 95 percentile. 03/05/2024: Patient was seen pulmonary today agree with the treatment for acute hypoxic respiratory failure as a viral screening was negative and procalcitonin negative patient had COVID-19 few days earlier and this is probably residual of COVID-19 he was switched from Solu-Medrol to Decadron has been helpful also still on Lovenox titrate O2 try to keep his pulse ox above 90 percentile blood sugar slightly with elevated hemoglobin holding well at 15.9 still have normal kidney function original testing with D-dimer was negative procalcitonin was less than 0.02 and proBNP at 444. Began pulmonary looking at the chest x-ray despite the area in the right hilar still not normal and advised to send him for CAT scan of the lung. Pulmonary claim this is normal at this point. REVIEW OF SYSTEMS: CONSTITUTIONAL: Well-developed no acute respiratory distress. EYES: No icterus sclerae, no conjunctivitis. EARS, NOSE, MOUTH, THROAT, and FACE: No sore throat, lymphadenopathy, carotid bruits or deformity. RESPIRATORY: Decreased breath sound bilaterally with rhonchi and crackles CARDIOVASCULAR: No CP, Palpitation, PND, Orthopnea, or angina. GASTROINTESTINAL: No Abd pain, Nausea or vomiting, no Diarrhea or constipation, No GI Bleed, no distention or masses. GENITOURINARY: Negative for Hematuria or UTI, no kidney stones. INTEGUMENT/BREAST: Negative for any muscular injury with mild osteoarthritis.. HEMATOLOGIC/LYMPHATIC: Negative for bleed or purpura. MUSCULOSKELTAL: Negative for Myalgia or arthralgia. NEURLOGICAL: No LOC, Sz or syncope, blurred vision dizziness or abnormality.. BEHAVIORAL/PSYCH: Negative. ENDOCRINE: Negative. PHYSICAL EXAMINATION: General Appearance: Alert, cooperative, no distress, appears stated age. Neck HEENT: Supple, no lymphadenopathy, no thyroid enlargement, no carotid bruits. Lungs: Clear to auscultation without crackles or wheezes no rhonchi, no deformity. Chest Wall: Chest wall normal expansion with deep inspiration no tenderness and no deformity was found on exam, no costochondral pain or discomfort. Heart: Regular rate and rhythm, S1, S2 normal, no murmur, rub or gallop. Back: Symmetric, no curvature, ROM normal, no CVA tenderness. Abdomen: Soft, non-tender, bowel sounds active all four quadrants, no masses, no organomegaly. Extremities: Extremities normal, atraumatic, no cyanosis or edema. Pulses: 2+ and symmetric. Skin: Skin color, texture, tugor normal, no rashes or lesions. Neurologic: Alert oriented x3 cranial nerves II through XII intact, no motor deficit, no abnormal balance or gait. ASSESSMENT AND PLAN: _Acute respiratory failure: Most likely secondary to severe bronchitis, mild asthma and COVID-19. _Severe dyspnea and shortness of breath: Medical etiology most likely residual from COVID-19 infection happened last week, even his test is negative does not exclude the possibility. Specially with the tested positive for COVID-19. Also echocardiogram was done showed normal left ventricular function with mild to moderate mitral regurgitation and mild aortic regurgitation mild tricuspid regurgitation and mild pulmonary hypertension. _Severe bronchitis: He was started on azithromycin initially but with the procalcitonin is negative pulmonary had stopped medication early this morning. _Mild COPD exacerbation: Again was switched to Decadron and eventually will switch him to oral Decadron 4 mg a day for few days. Continue updraft treatment along with O2 on demand. _Valvular heart disease: Mild to moderate mitral and mild aortic and mild tricus pid regurgitation also has pulmonary hypertension which most like secondary to mild COPD which patient will continue currently on medical management. _Essential hypertension: Will continue propranolol HCL 80 mg daily will change medication and add either losartan or hydralazine on as-needed basis. _Type 2 diabetes: Has been well-controlled on metformin 500 mg twice a day to continue Accu-Chek and sliding scales coverage. _Restless leg syndrome: Remain on Requip 1 mg twice a day. _Hyperlipidemia: Continue patient on Lipitor 40 mg daily. _Tremor: Mostly essential tremor, well-controlled on propranolol. _Obstructive sleep apnea: Has been study does not have CPAP yet. _Low-grade polycythemia: Mostly secondary to COPD and probably obstructive sleep apnea treat underlying disease. Discussion: Continue O2, continue updraft treatment and Decadron off antibiotic at this point hopefully if improved in the next 24 hours might be able to be discharged home on Friday or Friday. Objective - Vital Signs Vital signs: Vital Signs Temp 97.9 F 03/05/24 06:48 Pulse 69 03/05/24 06:48 Resp 20 03/05/24 06:48 BP 181/99 03/05/24 06:48 Pulse Ox 93 L 03/05/24 06:48 FiO2 Intake & Output 03/04/24 03/05/24 03/05/24 18:59 06:59 18:59 Intake Total 960 Balance 960 Weight 104.326 kg 104.326 kg Intake: Oral 960 Other: Voiding Method Toilet # Voids 3 - Labs CBC & Chem 7: 03/05/24 03:14 03/05/24 03:14 Labs: Abnormal Lab Results - Last 24 Hours (Table) 03/04/24 03/04/24 03/04/24 Range/Units 15:43 15:43 15:43 WBC (4.50-10.00) X 10*3/uL MCH (27.0-32.0) pg MPV (9.5-12.2) FL Neutrophils # 8.2 H (1.3-7.7) k/uL Carbon Dioxide 20 L (22-30) mmol/L Anion Gap (4.00-12.00) mmol/L BUN/Creatinine Ratio (12.00-20.00) Ratio Glucose 216 H (74-99) mg/dL POC Glucose (mg/dL) (70-110) mg/dL NT-Pro-B Natriuret Pep 444 H (0-125) pg/mL 03/04/24 03/05/24 03/05/24 Range/Units 20:51 03:14 03:14 WBC 10.59 H (4.50-10.00) X 10*3/uL MCH 32.6 H (27.0-32.0) pg MPV 12.4 H (9.5-12.2) FL Neutrophils # (1.3-7.7) k/uL Carbon Dioxide (22-30) mmol/L Anion Gap 12.30 H (4.00-12.00) mmol/L BUN/Creatinine Ratio 29.62 H (12.00-20.00) Ratio Glucose 167 H (74-99) mg/dL POC Glucose (mg/dL) 174 H (70-110) mg/dL NT-Pro-B Natriuret Pep (0-125) pg/mL 03/05/24 Range/Units 06:14 WBC (4.50-10.00) X 10*3/uL MCH (27.0-32.0) pg MPV (9.5-12.2) FL Neutrophils # (1.3-7.7) k/uL Carbon Dioxide (22-30) mmol/L Anion Gap (4.00-12.00) mmol/L BUN/Creatinine Ratio (12.00-20.00) Ratio Glucose (74-99) mg/dL POC Glucose (mg/dL) 213 H (70-110) mg/dL NT-Pro-B Natriuret Pep (0-125) pg/mL
[2024-03-06 06:24] LABS: Glucose,Whole Blood 103 mg/dL (70-110)
--- NOTE | 2024-03-06 10:18 | XR ---
EXAMINATION TYPE: XR chest 2V DATE OF EXAM: 03/06/2024 COMPARISON: 03/04/2024 HISTORY: Shortness of breath TECHNIQUE: Frontal and lateral views of the chest are obtained. FINDINGS: There is development of a small partially consolidated opacity in the right lower lung zone which cou ld represent a focal pneumonia. The left lung is clear. There is no pleural effusion or pneumothorax. The heart and pulmonary vasculature are normal. The osseous structures are intact. IMPRESSION: Cannot exclude small focal pneumonic infiltrate in the right lower lung zone. Short-term follow-up to resolution is recommended. [facility], , 03/06/2024 10:16 AM
[2024-03-06] MEDS: dexAMETHasone 4 MG TAB PO SCH (10:22)
--- NOTE | 2024-03-06 11:23 | P.PN ---
Subjective Progress Note Date: 03/06/24 This is a pleasant 69-year-old male patient with a known history of CVA/TIA, hypertension, hyperlipidemia, neuropathy, former smoker. He had recently traveled to [facility] and upon return he and his were both sick. She had tested positive for COVID initially and he was negative then yesterday at home test tested positive. He came into the emergency room with increasing shortness of breath, cough and congestion. His COVID test here was negative. Influenza screen negative. RSV screen negative. Chest x-ray shows no acute pulmonary process. White count 10.5. Hemoglobin 15.9. Platelets 211. Sodium 139. Potassium 4.0. Bicarb 24. BUN 24. Creatinine 0.8. Glucose 167. D-dimer 0.47. Procalcitonin negative at 0.02. He is seen today in consultation on the regular medical floor. Currently sitting up in bed. Alert and alert in no acute distress. Maintaining O2 saturations in the 90s on 3 L/min per nasal cannula. He is afebrile. He is currently on Symbicort, albuterol, Decadron, Si ngulair. Lovenox for DVT prophylaxis. The patient is seen today March 06, 2024 in follow-up on the regular medical floor. He is currently sitting up in bed. Awake and alert in no acute distress. Doing a bit better today compared to yesterday. Still with some shortness of breath with conversation. Short of breath with exertion. Maintaining good O2 saturations in the 90s on 2 L/min per nasal cannula. Still somewhat bronchospastic and wheezing. Chest x-ray shows a small focal pneumonic infiltrate in the right lung base. Procalcitonin was negative at 0.02. Glucose 103. He remains on Symbicort, albuterol, Solu-Medrol and Singulair. Lovenox for DVT prophylaxis. Objective - Vital Signs Vital signs: Vital Signs Temp 98.3 F 03/06/24 07:09 Pulse 60 03/06/24 08:50 Resp 17 03/06/24 08:00 BP 172/91 03/06/24 07:09 Pulse Ox 93 L 03/06/24 07:09 FiO2 Intake & Output 03/05/24 03/06/24 03/06/24 18:59 06:59 18:59 Intake Total 960 Balance 960 Intake: Oral 960 Other: Voiding Method Toilet Toilet # Voids 3 - Exam GENERAL EXAM: Alert, pleasant 69-year-old male, on 2 L nasal cannula, comfortable in no apparent distress. HEAD: Normocephalic. EYES: Normal reaction of pupils, equal size. NOSE: Clear with pink turbinates. THROAT: No erythema or exudates. NECK: No masses, no JVD. CHEST: No chest wall deformity. LUNGS: Equal air entry with bilateral end expiratory wheeze, few scattered rhonchi. CVS: S1 and S2 normal with no audible murmur, regular rhythm. ABDOMEN: No hepatosplenomegaly, normal bowel sounds, no guarding or rigidity. SPINE: No scoliosis or deformity SKIN: No rashes CENTRAL NERVOUS SYSTEM: No focal deficits, tone is normal in all 4 extremities. EXTREMITIES: There is no peripheral edema. No clubbing, no cyanosis. Peripheral pulses are intact. - Labs CBC & Chem 7: 03/05/24 03:14 03/05/24 03:14 Labs: Abnormal Lab Results - Last 24 Hours (Table) 03/05/24 03/05/24 Range/Units 16:31 19:34 POC Glucose (mg/dL) 230 H 121 H (70-110) mg/dL Assessment and Plan Assessment: Acute hypoxic respiratory failure secondary to an acute tracheobronchitis. Viral screen negative. Procalcitonin negative Former smoker with some possible underlying COPD History of CVA/TIA Hypertension Hyperlipidemia Neuropathy History of depression Diabetes mellitus Plan: The patient was seen and evaluated Chest x-ray, labs and medications reviewed Continue Symbicort, albuterol, Solu-Medrol Lovenox for DVT prophylaxis Titrate down the FiO2 as tolerated Increase his activity as tolerated We will continue to follow I have personally seen and examined the patient, performed the documentation and the assessment and plan as written. Number of minutes spent on the visit: 10. Dictation was produced using [employer]onem[employer] software. Please excuse any grammatical, word or spelling errors.
[2024-03-06 11:27] LABS: Glucose,Whole Blood 80 mg/dL (70-110)
[2024-03-06] MEDS: methylPREDNISolone SOD SUCCI 40 MG/ML 1 ML VIAL IV SCH (12:04)
[2024-03-06] MEDS: ALPRAZolam 0.25 MG TAB PO PRN (12:07)
[2024-03-06 16:44] LABS: Glucose,Whole Blood 189 mg/dL (70-110)
--- NOTE | 2024-03-06 17:34 | P.PN ---
Subjective Progress Note Date: 03/06/24 HISTORY OF PRESENT ILLNESS: 69-year-old with active medical history of CVA with right-sided weakness, hypertension, hyperlipidemia, mild arrhythmia, obstructive sleep apnea, mild t remor, hyperglycemia, who also has mild BPH and mild osteoarthritis was apparently clip to systole easily this last week when he becomes slightly with symptomatic for the last 5 days with mild shortness of breath cough and wheezes with mild nausea and fatigue tiredness. Patient's become symptomatic as well and tested positive for COVID-19 patient was not symptomatic at the time. Patient apparently tested negative for COVID-19 1 trial last 24 hours but has been symptomatic for a bit longer time at the time did not have any significant dyspnea more than fatigue tiredness mild cough and URI symptoms like. With the worsening symptoms today not been able to walk or ambulate without severe dyspnea and shortness of breath with worsening cough low-grade temperature and hypoxia ended up coming to the emergency department where was seen and evaluated Lab value shows white blood cell of 9.6 hemoglobin 16.3 hematocrit 47.7 with normal platelet count, electrolyte panel did not show any major abnormality except blood sugar 216 normal BNP normal liver function test. Serology for influenza A and influenza B along with RSV and SARS were all negative. After few rounds of updraft treatment continue to have tightness wheezy and significant shortness of breath ended up coming to the emergency department him and his were he was seen and evaluated surprisingly his pulse ox initially was in the 80s despite oxygen, pulse rate jumped over the map with the adjusted dose of O2, working hard to keep pulse ox above 95 percentile. 03/05/2024: Patient was seen pulmonary today agree with the treatment for acute hypoxic respiratory failure as a viral screening was negative and procalcitonin negative patient had COVID-19 few days earlier and this is probably residual of COVID-19 he was switched from Solu-Medrol to Decadron has been helpful also still on Lovenox titrate O2 try to keep his pulse ox above 90 percentile blood sugar slightly with elevated hemoglobin holding well at 15.9 still have normal kidney function original testing with D-dimer was negative procalcitonin was less than 0.02 and proBNP at 444. Began pulmonary looking at the chest x-ray despite the area in the right hilar still not normal and advised to send him for CAT scan of the lung. Pulmonary claim this is normal at this point. 03/06/2024: Patient become more dyspneic today has been having significant tightness and wheezes, despite try to take him off steroid apparently was ordered for Decadron was placed by mistake on as-needed basis which made his symptoms much worse today. Will put him back on Solu-Medrol IV till his discharge, patient is more dependent on his updraft treatment almost [id number]. Repeat chest x-ray did not show any further infiltrate but still showing quite bronchitis at this point. Again with the serial confirm of diagnosis of COVID-19 probably 2 or 3 days earlier with his presentation his testing here came back negative he should still be probably treated as a COVID- 19 patient meds with causing his symptoms to take little longer than expected. Also had worsening reactive airway/asthma acting like COPD eventually would benefit probably from doing pulmonary function test and if continue to have worsening symptoms CT of the chest might be done to exclude possibility of pulmonary embolism as well. REVIEW OF SYSTEMS: CONSTITUTIONAL: Well-developed no acute respiratory distress. EYES: No icterus sclerae, no conjunctivitis. EARS, NOSE, MOUTH, THROAT, and FACE: No sore throat, lymphadenopathy, carotid bruits or deformity. RESPIRATORY: Decreased breath sound bilaterally with rhonchi and crackles CARDIOVASCULAR: No CP, Palpitation, PND, Orthopnea, or angina. GASTROINTESTINAL: No Abd pain, Nausea or vomiting, no Diarrhea or constipation, No GI Bleed, no distention or masses. GENITOURINARY: Negative for Hematuria or UTI, no kidney stones. INTEGUMENT/BREAST: Negative for any muscular injury with mild osteoarthritis.. HEMATOLOGIC/LYMPHATIC: Negative for bleed or purpura. MUSCULOSKELTAL: Negative for Myalgia or arthralgia. NEURLOGICAL: No LOC, Sz or syncope, blurred vision dizziness or abnormality.. BEHAVIORAL/PSYCH: Negative. ENDOCRINE: Negative. PHYSICAL EXAMINATION: General Appearance: Alert, cooperative, no distress, appears stated age. Neck HEENT: Supple, no lymphadenopathy, no thyroid enlargement, no carotid bruits. Lungs: Clear to auscultation without crackles or wheezes no rhonchi, no deformity. Chest Wall: Chest wall normal expansion with deep inspiration no tenderness and no deformity was found on exam, no costochondral pain or discomfort. Heart: Regular rate and rhythm, S1, S2 normal, no murmur, rub or gallop. Back: Symmetric, no curvature, ROM normal, no CVA tenderness. Abdomen: Soft, non-tender, bowel sounds active all four quadrants, no masses, no organomegaly. Extremities: Extremities normal, atraumatic, no cyanosis or edema. Pulses: 2+ and symmetric. Skin: Skin color, texture, tugor normal, no rashes or lesions. Neurologic: Alert oriented x3 cranial nerves II through XII intact, no motor deficit, no abnormal balance or gait. ASSESSMENT AND PLAN: _Acute respiratory failure: Most likely slight delay COVID-19 infection with severe bronchitis more viral not pneumonia. With patient not improving as fast CT of the lung will be done to exclude the possibility of pulmonary embolism tommy morley with any other finding might explain why he still more symptomatic. _Severe dyspnea and shortness of breath: Medical etiology most likely residual from COVID-19 infection happened last week, even his test is negative does not exclude the possibility. Echocardiogram showed valvular heart disease and pulmonary hypertension the patient still quite symptomatic at this point with his dyspnea we will have him back on Solu-Medrol 40 mg IV Q8 of the day of his discharge and continue updraft treatment on the clock. _Possible pulmonary embolism: Patient is not improving fast enough CTA of the lung will be done to exclude pulmonary embolism. _Severe bronchitis: Most likely viral still showing slight fibrosis line on his chest x-ray without any lobular infiltrate more consistent with viral bron chitis. _Mild COPD exacerbation: Patient is continuing oxygen 2 to 3 L nasal cannula continuously along with back on Solu-Medrol and updraft treatment on the clock. _Valvular heart disease: Mild to moderate mitral and mild aortic and mild tricuspid regurgitation also has pulmonary hypertension which most like secondary to mild COPD which patient will continue currently on medical management. _Essential hypertension: Will continue propranolol HCL 80 mg daily will change medication and add either losartan or hydralazine on as-needed basis. _Type 2 diabetes: Has been well-controlled on metformin 500 mg twice a day to continue Accu-Chek and sliding scales coverage. _Restless leg syndrome: Remain on Requip 1 mg twice a day. _Hyperlipidemia: Continue patient on Lipitor 40 mg daily. _Tremor: Mostly essential tremor, well-controlled on propranolol. _Obstructive sleep apnea: Has been study does not have CPAP yet. _Low-grade polycythemia: Mostly secondary to COPD and probably obstructive sleep apnea treat underlying disease. Discussion: CT of the lung was ordered, patient is off antibiotics completely to continue updraft treatment on the clock. Still on Solu-Medrol 40 mg Q8. Objective - Vital Signs Vital signs: Vital Signs Temp 98.3 F 03/06/24 07:09 Pulse 60 03/06/24 08:50 Resp 17 03/06/24 07:09 BP 172/91 03/06/24 07:09 Pulse Ox 93 L 03/06/24 07:09 FiO2 Intake & Output 03/05/24 03/06/24 03/06/24 18:59 06:59 18:59 Intake Total 960 Balance 960 Intake: Oral 960 Other: Voiding Method Toilet # Voids 3 - Labs CBC & Chem 7: 03/05/24 03:14 03/05/24 03:14 Labs: Abnormal Lab Results - Last 24 Hours (Table) 03/05/24 03/05/24 03/05/24 Range/Units 11:13 16:31 19:34 POC Glucose (mg/dL) 186 H 230 H 121 H (70-110) mg/dL
--- NOTE | 2024-03-06 18:20 | CT ---
CTA CHEST EXAMINATION TYPE: CT angio chest DATE OF EXAM: 03/06/2024 INDICATION: Dyspnea x 1 week, negative dimer. CT DLP: 990.9 mGycm, Automated exposure control for dose reduction was used. CONTRAST: Patient injected with 100 cc mL of Isovue 370. COMPARISON: None TECHNIQUE: CT of the chest is performed on a spiral scan at 2 mm thick sections. Study is performed with intravenous contrast timed for evaluation for pulmonary embolism. This will limit additional po rtions of the evaluation. Contrast timing appears suboptimal visual loss in limitation. FINDINGS: No persistent filling defects are evident to suggest an acute pulmonary embolism. No mediastinal or hilar adenopathy enlarged by CT criteria is evident. The ascending aorta diameter at the level of the main pulmonary artery is 3.9 cm. The main pulmonary artery diameter at the bifurcation is 2.9 cm. Lung windows are clear. Peribronchial thickening may be present. Correlate for chronic bronchitis Limited CT sections were through the upper abdomen. Upper abdomen appears unremarkable. IMPRESSION: 1. No persistent filling defects to suggest pulmonary embolism. Contrast timing is suboptimal and the re is some limitation on this evaluation. 2. Chronic bronchitis [facility], Workstation: [facility], 03/06/2024 6:17 PM
[2024-03-06 20:29] LABS: Glucose,Whole Blood 250 mg/dL (70-110)
[2024-03-06] MEDS: guaiFENesin-Coden 100-10MG/5ML 10 ML CUP PO PRN (22:55)
[2024-03-07 06:15] LABS: Glucose,Whole Blood 151 mg/dL (70-110)
--- NOTE | 2024-03-07 10:49 | P.PN ---
Subjective Progress Note Date: 03/07/24 This is a pleasant 69-year-old male patient with a known history of CVA/TIA, hypertension, hyperlipidemia, neuropathy, former smoker. He had recently traveled to [facility] and upon return he and his were both sick. She had tested positive for COVID initially and he was negative then yesterday at home test tested positive. He came into the emergency room with increasing shortness of breath, cough and congestion. His COVID test here was negative. Influenza screen negative. RSV screen negative. Chest x-ray shows no acute pulmonary process. White count 10.5. Hemoglobin 15.9. Platelets 211. Sodium 139. Potassium 4.0. Bicarb 24. BUN 24. Creatinine 0.8. Glucose 167. D-dimer 0.47. Procalcitonin negative at 0.02. He is seen today in consultation on the regular medical floor. Currently sitting up in bed. Alert and alert in no acute distress. Maintaining O2 saturations in the 90s on 3 L/min per nasal cannula. He is afebrile. He is currently on Symbicort, albuterol, Decadron, Si ngulair. Lovenox for DVT prophylaxis. The patient is seen today March 06, 2024 in follow-up on the regular medical floor. He is currently sitting up in bed. Awake and alert in no acute distress. Doing a bit better today compared to yesterday. Still with some shortness of breath with conversation. Short of breath with exertion. Maintaining good O2 saturations in the 90s on 2 L/min per nasal cannula. Still somewhat bronchospastic and wheezing. Chest x-ray shows a small focal pneumonic infiltrate in the right lung base. Procalcitonin was negative at 0.02. Glucose 103. He remains on Symbicort, albuterol, Solu-Medrol and Singulair. Lovenox for DVT prophylaxis. The patient is seen today March 07, 2024 in follow-up on the regular medical floor. He is currently sitting up in a chair at the bedside. Awake and alert in no acute distress. Feeling better today compared to yesterday. He is maintaining good O2 saturation in the 90s on 3 L/min per nasal cannula. No IV fluids. CT angiogram revealed no persistent filling defects to suggest pulmonary embolism. Chronic bronchitis. No evidence of COVID-pneumonia. Glucose 151. He is continued on Symbicort, albuterol, Solu-Medrol and Singulair. Lovenox for DVT prophylaxis. Robitussin for his cough. Objective - Vital Signs Vital signs: Vital Signs Temp 97.4 F L 03/07/24 06:52 Pulse 68 03/07/24 08:47 Resp 16 03/07/24 08:00 BP 168/90 03/07/24 06:52 Pulse Ox 94 L 03/07/24 06:52 FiO2 Intake & Output 03/06/24 03/07/24 03/07/24 18:59 06:59 18:59 Intake Total 600 Balance 600 Intake: Oral 600 Other: Voiding Method Toilet Toilet # Voids 3 2 2 - Exam GENERAL EXAM: Alert, pleasant 69-year-old male, sitting up in a chair, on 3 L nasal cannula, in no apparent distress. HEAD: Normocephalic. EYES: Normal reaction of pupils, equal size. NOSE: Clear with pink turbinates. THROAT: No erythema or exudates. NECK: No masses, no JVD. CHEST: No chest wall deformity. LUNGS: Equal air entry with bilateral end expiratory wheeze, few scattered rhonchi. CVS: S1 and S2 normal with no audible murmur, regular rhythm. ABDOMEN: No hepatosplenomegaly, normal bowel sounds, no guarding or rigidity. SPINE: No scoliosis or deformity SKIN: No rashes CENTRAL NERVOUS SYSTEM: No focal deficits, tone is normal in all 4 extremities. EXTREMITIES: There is no peripheral edema. No clubbing, no cyanosis. Peripheral pulses are intact. - Labs CBC & Chem 7: 03/05/24 03:14 03/05/24 03:14 Labs: Abnormal Lab Results - Last 24 Hours (Table) 03/06/24 03/06/24 03/07/24 Range/Units 16:42 20:27 06:12 POC Glucose (mg/dL) 189 H 250 H 151 H (70-110) mg/dL Assessment and Plan Assessment: Acute hypoxic respiratory failure secondary to an acute tracheobronchitis. Viral screen negative. Procalcitonin negative. CT angiogram negative for pulmonary embolism Former smoker with some possible underlying COPD History of CVA/TIA Hypertension Hyperlipidemia Neuropathy History of depression Diabetes mellitus Plan: The patient was seen and evaluated CT angiogram, labs and medications reviewed Continue the current treatment plan Titrate down the FiO2 as tolerated Increase his activity as tolerated Probable discharge in a.m. I have personally seen and examined the patient, performed the documentation and the assessment and plan as written. Number of minutes spent on the visit: 10. Dictation was produced using [employer] dictation software. Please excuse any grammatical, word or spelling errors.
[2024-03-07 11:30] LABS: Glucose,Whole Blood 139 mg/dL (70-110)
[2024-03-07 16:43] LABS: Glucose,Whole Blood 232 mg/dL (70-110)
[2024-03-07 20:55] LABS: Glucose,Whole Blood 137 mg/dL (70-110)
--- NOTE | 2024-03-07 22:26 | P.PN ---
Subjective Progress Note Date: 03/07/24 HISTORY OF PRESENT ILLNESS: 69-year-old with active medical history of CVA with right-sided weakness, hypertension, hyperlipidemia, mild arrhythmia, obstructive sleep apnea, mild t remor, hyperglycemia, who also has mild BPH and mild osteoarthritis was apparently clip to systole easily this last week when he becomes slightly with symptomatic for the last 5 days with mild shortness of breath cough and wheezes with mild nausea and fatigue tiredness. Patient's become symptomatic as well and tested positive for COVID-19 patient was not symptomatic at the time. Patient apparently tested negative for COVID-19 1 trial last 24 hours but has been symptomatic for a bit longer time at the time did not have any significant dyspnea more than fatigue tiredness mild cough and URI symptoms like. With the worsening symptoms today not been able to walk or ambulate without severe dyspnea and shortness of breath with worsening cough low-grade temperature and hypoxia ended up coming to the emergency department where was seen and evaluated Lab value shows white blood cell of 9.6 hemoglobin 16.3 hematocrit 47.7 with normal platelet count, electrolyte panel did not show any major abnormality except blood sugar 216 normal BNP normal liver function test. Serology for influenza A and influenza B along with RSV and SARS were all negative. After few rounds of updraft treatment continue to have tightness wheezy and significant shortness of breath ended up coming to the emergency department him and his were he was seen and evaluated surprisingly his pulse ox initially was in the 80s despite oxygen, pulse rate jumped over the map with the adjusted dose of O2, working hard to keep pulse ox above 95 percentile. 03/05/2024: Patient was seen pulmonary today agree with the treatment for acute hypoxic respiratory failure as a viral screening was negative and procalcitonin negative patient had COVID-19 few days earlier and this is probably residual of COVID-19 he was switched from Solu-Medrol to Decadron has been helpful also still on Lovenox titrate O2 try to keep his pulse ox above 90 percentile blood sugar slightly with elevated hemoglobin holding well at 15.9 still have normal kidney function original testing with D-dimer was negative procalcitonin was less than 0.02 and proBNP at 444. Began pulmonary looking at the chest x-ray despite the area in the right hilar still not normal and advised to send him for CAT scan of the lung. Pulmonary claim this is normal at this point. 03/06/2024: Patient become more dyspneic today has been having significant tightness and wheezes, despite try to take him off steroid apparently was ordered for Decadron was placed by mistake on as-needed basis which made his symptoms much worse today. Will put him back on Solu-Medrol IV till his discharge, patient is more dependent on his updraft treatment almost [id number]. Repeat chest x-ray did not show any further infiltrate but still showing quite bronchitis at this point. Again with the serial confirm of diagnosis of COVID-19 probably 2 or 3 days earlier with his presentation his testing here came back negative he should still be probably treated as a COVID- 19 patient meds with causing his symptoms to take little longer than expected. Also had worsening reactive airway/asthma acting like COPD eventually would benefit probably from doing pulmonary function test and if continue to have worsening symptoms CT of the chest might be done to exclude possibility of pulmonary embolism as well. 03/07/2024: CTA was done yesterday showed no active blood clot or pulmonary embolism but finding more consistent with severe bronchitis due to IVC with active recent infection such as COVID or virus infection mostly not bacterial infection patient is feeling slightly better today with the steroid being used on more regular basis but he is going to require a nebulizer and nebulizer management [id number] like he is doing in the hospital for at least the next few weeks. As of now he probably scheduled to be discharged home tomorrow but will arrange for him to have DuoNeb and probably Pulmicort to do at home as for oxygen patient require oxygen in the hospital does not require to be on any oxygen at home. Mobility [place] patient is able to ambulate and walk require minimum help but continue to be quite bit dyspneic at this point. Between him and his family are able to manage might require home care when he is discharged tomorrow. REVIEW OF SYSTEMS: CONSTITUTIONAL: Well-developed no acute respiratory distress. EYES: No icterus sclerae, no conjunctivitis. EARS, NOSE, MOUTH, THROAT, and FACE: No sore throat, lymphadenopathy, carotid bruits or deformity. RESPIRATORY: Decreased breath sound bilaterally with rhonchi and crackles CARDIOVASCULAR: No CP, Palpitation, PND, Orthopnea, or angina. GASTROINTESTINAL: No Abd pain, Nausea or vomiting, no Diarrhea or constipation, No GI Bleed, no distention or masses. GENITOURINARY: Negative for Hematuria or UTI, no kidney stones. INTEGUMENT/BREAST: Negative for any muscular injury with mild osteoarthritis.. HEMATOLOGIC/LYMPHATIC: Negative for bleed or purpura. MUSCULOSKELTAL: Negative for Myalgia or arthralgia. NEURLOGICAL: No LOC, Sz or syncope, blurred vision dizziness or abnormality.. BEHAVIORAL/PSYCH: Negative. ENDOCRINE: Negative. PHYSICAL EXAMINATION: General Appearance: Alert, cooperative, no distress, appears stated age. Neck HEENT: Supple, no lymphadenopathy, no thyroid enlargement, no carotid bruits. Lungs: Clear to auscultation without crackles or wheezes no rhonchi, no deformity. Chest Wall: Chest wall normal expansion with deep inspiration no tenderness and no deformity was found on exam, no costochondral pain or discomfort. Heart: Regular rate and rhythm, S1, S2 normal, no murmur, rub or gallop. Back: Symmetric, no curvature, ROM normal, no CVA tenderness. Abdomen: Soft, non-tender, bowel sounds active all four quadrants, no masses, no organomegaly. Extremities: Extremities normal, atraumatic, no cyanosis or edema. Pulses: 2+ and symmetric. Skin: Skin color, texture, tugor normal, no rashes or lesions. Neurologic: Alert oriented x3 cranial nerves II through XII intact, no motor deficit, no abnormal balance or gait. ASSESSMENT AND PLAN: _Acute respiratory failure: Most likely slight delay COVID-19 infection with severe bronchitis more viral not pneumonia. CT of the lung did not show any other finding more than bronchitis no pulmonary embolism was found. _Severe dyspnea and shortness of breath: Medical etiology most likely residual from COVID-19 infection happened last week, even his test is negative does not exclude the possibility. Echocardiogram showed valvular heart disease and pulmonary hypertension the patient still quite symptomatic at this point with his dyspnea we will have him back on Solu-Medrol 40 mg IV Q8 of the day of his discharge and continue updraft treatment on the clock. Switch him to oral prednisone as early as tomorrow continue updraft treatment [id number]. _ pulmonary embolism was excluded: He ended up going for CTA of the lung did not show any PE. _Severe bronchitis: Most likely viral still showing slight fibrosis line on his chest x-ray without any lobular infiltrate more consistent with viral bronchitis. If he is not better by tomorrow probably add at least doxycycline his procalcitonin was negative which still make me believe even with his severe bronchitis this is still more viral. _Mild COPD exacerbation: Patient is continuing oxygen 2 to 3 L nasal cannula continuously along with back on Solu-Medrol and updraft treatment on the clock. _Valvular heart disease: Mild to moderate mitral and mild aortic and mild tricuspid regurgitation also has pulmonary hypertension which most like secondary to mild COPD which patient will continue currently on medical management. _Essential hypertension: Will continue propranolol HCL 80 mg daily will change medication and add either losartan or hydralazine on as-needed basis. _Type 2 diabetes: Has been well-controlled on metformin 500 mg twice a day to continue Accu-Chek and sliding scales coverage. _Restless leg syndrome: Remain on Requip 1 mg twice a day. _Hyperlipidemia: Continue patient on Lipitor 40 mg daily. _Tremor: Mostly essential tremor, well-controlled on propranolol. _Obstructive sleep apnea: Has been study does not have CPAP yet. _Low-grade polycythemia: Mostly secondary to COPD and probably obstructive sleep apnea treat underlying disease. Discussion: Switch patient to oral prednisone by tomorrow, does not require any oxygen, required updraft treatment and management which will be arranged for him for tomorrow to do DuoNeb along with Pulmicort continue aggressive management and short-term follow-up in the office to help him out. Objective - Vital Signs Vital signs: Vital Signs Temp 97.4 F L 03/07/24 06:52 Pulse 68 03/07/24 08:47 Resp 16 03/07/24 06:52 BP 168/90 03/07/24 06:52 Pulse Ox 94 L 03/07/24 06:52 FiO2 Intake & Output 03/06/24 03/07/24 03/07/24 18:59 06:59 18:59 Intake Total 600 Balance 600 Intake: Oral 600 Other: Voiding Method Toilet # Voids 3 2 - Labs CBC & Chem 7: 03/05/24 03:14 03/05/24 03:14 Labs: Abnormal Lab Results - Last 24 Hours (Table) 03/06/24 03/06/24 03/07/24 Range/Units 16:42 20:27 06:12 POC Glucose (mg/dL) 189 H 250 H 151 H (70-110) mg/dL
[2024-03-08 06:31] LABS: Glucose,Whole Blood 156 mg/dL (70-110)
[2024-03-08 07:47] VITALS: BP 153/89; RESP 17; TEMP 97.7
[2024-03-08 09:31] VITALS: PULSE 57
[2024-03-08 11:07] LABS: Glucose,Whole Blood 177 mg/dL (70-110)
--- NOTE | 2024-03-14 08:39 | P.DS ---
Providers Date of admission: 03/04/24 13:54 Attending physician: Thomas Montez Consults: 03/04/24 18:20 Consult Physician Routine Consulting Provider: Jaquan Javier Consult Reason/Comments: Hypoxia Do you want consulting provider notified?: Yes Primary care physician: Thomas Montez [facility] Course: HISTORY OF PRESENT ILLNESS: 69-year-old with active medical history of CVA with right-sided weakness, hypertension, hyperlipidemia, mild arrhythmia, obstructive sleep apnea, mild tremor, hyperglycemia, who also has mild BPH and mild osteoarthritis was apparently clip to systole easily this last week when he becomes slightly with symptomatic for the last 5 days with mild shortness of breath cough and wheezes with mild nausea and fatigue tiredness. Patient's become symptomatic as well and tested positive for COVID-19 patient was not symptomatic at the time. Patient apparently tested negative for COVID-19 1 trial last 24 hours but has been symptomatic for a bit longer time at the time did not have any significant dyspnea more than fatigue tiredness mild cough and URI symptoms like. With the worsening symptoms today not been able to walk or ambulate without severe d yspnea and shortness of breath with worsening cough low-grade temperature and hypoxia ended up coming to the emergency department where was seen and evaluated Lab value shows white blood cell of 9.6 hemoglobin 16.3 hematocrit 47.7 with normal platelet count, electrolyte panel did not show any major abnormality except blood sugar 216 normal BNP normal liver function test. Serology for influenza A and influenza B along with RSV and SARS were all negative. After few rounds of updraft treatment continue to have tightness wheezy and significant shortness of breath ended up coming to the emergency department him and his were he was seen and evaluated surprisingly his pulse ox initially was in the 80s despite oxygen, pulse rate jumped over the map with the adjusted dose of O2, working hard to keep pulse ox above 95 percentile. 03/05/2024: Patient was seen pulmonary today agree with the treatment for acute hypoxic respiratory failure as a viral screening was negative and procalcitonin negative patient had COVID-19 few days earlier and this is probably residual of COVID-19 he was switched from Solu-Medrol to Decadron has been helpful also still on Lovenox titrate O2 try to keep his pulse ox above 90 percentile blood sugar slightly with elevated hemoglobin holding well at 15.9 still have normal kidney function original testing with D-dimer was negative procalcitonin was less than 0.02 and proBNP at 444. Began pulmonary looking at the chest x-ray despite the area in the right hilar still not normal and advised to send him for CAT scan of the lung. Pulmonary claim this is normal at this point. 03/06/2024: Patient become more dyspneic today has been having significant tightness and wheezes, despite try to take him off steroid apparently was ordered for Decadron was placed by mistake on as-needed basis which made his symptoms much worse today. Will put him back on Solu-Medrol IV till his discharge, patient is more dependent on his updraft treatment almost [id number]. Repeat chest x-ray did not show any further infiltrate but still showing quite bronchitis at this point. Again with the serial confirm of diagnosis of COVID-19 probably 2 or 3 days earlier with his presentation his testing here came back negative he should still be probably treated as a COVID- 19 patient meds with causing his symptoms to take little longer than expected. Also had worsening reactive airway/asthma acting like COPD eventually would benefit probably from doing pulmonary function test and if continue to have worsening symptoms CT of the chest might be done to exclude possibility of pulmonary embolism as well. 03/07/2024: CTA was done yesterday showed no active blood clot or pulmonary embolism but finding more consistent with severe bronchitis due to IVC with active recent infection such as COVID or virus infection mostly not bacterial infection patient is feeling slightly better today with the steroid being used on more regular basis but he is going to require a nebulizer and nebulizer management [id number] like he is doing in the hospital for at least the next few weeks. As of now he probably scheduled to be discharged home tomorrow but will arrange for him to have DuoNeb and probably Pulmicort to do at home as for oxygen patient require oxygen in the hospital does not require to be on any oxygen at home. Mobility [place] patient is able to ambulate and walk require minimum help but continue to be quite bit dyspneic at this point. Between him and his family are able to manage might require home care when he is discharged tomorrow. 03/08/2024: Patient is feeling very well shortness of breath has improved, cough and wheezing is much better. Arrangement for nebulizer machine patient oxygen level on room air trending to be in the 90 percentile does not require any oxygen. He will be discharged home today to be seen back in the office in the next few days continue steroid tapering dose fast and rapid. REVIEW OF SYSTEMS: CONSTITUTIONAL: Well-developed no acute respiratory distress. EYES: No icterus sclerae, no conjunctivitis. EARS, NOSE, MOUTH, THROAT, and FACE: No sore throat, lymphadenopathy, carotid bruits or deformity. RESPIRATORY: Decreased breath sound bilaterally with rhonchi and crackles CARDIOVASCULAR: No CP, Palpitation, PND, Orthopnea, or angina. GASTROINTESTINAL: No Abd pain, Nausea or vomiting, no Diarrhea or constipation, No GI Bleed, no distention or masses. GENITOURINARY: Negative for Hematuria or UTI, no kidney stones. INTEGUMENT/BREAST: Negative for any muscular injury with mild osteoarthritis.. HEMATOLOGIC/LYMPHATIC: Negative for bleed or purpura. MUSCULOSKELTAL: Negative for Myalgia or arthralgia. NEURLOGICAL: No LOC, Sz or syncope, blurred vision dizziness or abnormality.. BEHAVIORAL/PSYCH: Negative. ENDOCRINE: Negative. PHYSICAL EXAMINATION: General Appearance: Alert, cooperative, no distress, appears stated age. Neck HEENT: Supple, no lymphadenopathy, no thyroid enlargement, no carotid bruits. Lungs: Clear to auscultation without crackles or wheezes no rhonchi, no deformity. Chest Wall: Chest wall normal expansion with deep inspiration no tenderness and no deformity was found on exam, no costochondral pain or discomfort. Heart: Regular rate and rhythm, S1, S2 normal, no murmur, rub or gallop. Back: Symmetric, no curvature, ROM normal, no CVA tenderness. Abdomen: Soft, non-tender, bowel sounds active all four quadrants, no masses, no organomegaly. Extremities: Extremities normal, atraumatic, no cyanosis or edema. Pulses: 2+ and symmetric. Skin: Skin color, texture, tugor normal, no rashes or lesions. Neurologic: Alert oriented x3 cranial nerves II through XII intact, no motor deficit, no abnormal balance or gait. ASSESSMENT AND PLAN: _Acute respiratory failure: Most likely slight delay COVID-19 infection with severe bronchitis more viral not pneumonia. CT of the lung did not show any other finding more than bronchitis no pulmonary embolism was found. _Severe dyspnea and shortness of breath: Medical etiology most likely residual from COVID-19 infection happened last week, even his test is negative does not exclude the possibility. Echocardiogram showed valvular heart disease and pulmonary hypertension the patient still quite symptomatic at this point with his dyspnea we will have him back on Solu-Medrol 40 mg IV Q8 of the day of his discharge and continue updraft treatment on the clock. Switch him to oral prednisone as early as tomorrow continue updraft treatment [id number]. _ pulmonary embolism was excluded: He ended up going for CTA of the lung did not show any PE. _Severe bronchitis: Most likely viral still showing slight fibrosis line on his chest x-ray without any lobular infiltrate more consistent with viral bronchitis. If he is not better by tomorrow probably add at least doxycycline his procalcitonin was negative which still make me believe even with his severe bronchitis this is still more viral. _Mild COPD exacerbation: Patient is continuing oxygen 2 to 3 L nasal cannula continuously along with back on Solu-Medrol and updraft treatment on the clock. _Valvular heart disease: Mild to moderate mitral and mild aortic and mild tricuspid regurgitation also has pulmonary hypertension which most like second mckinley to mild COPD which patient will continue currently on medical management. _Essential hypertension: Will continue propranolol HCL 80 mg daily will change medication and add either losartan or hydralazine on as-needed basis. _Type 2 diabetes: Has been well-controlled on metformin 500 mg twice a day to continue Accu-Chek and sliding scales coverage. _Restless leg syndrome: Remain on Requip 1 mg twice a day. _Hyperlipidemia: Continue patient on Lipitor 40 mg daily. _Tremor: Mostly essential tremor, well-controlled on propranolol. _Obstructive sleep apnea: Has been study does not have CPAP yet. _Low-grade polycythemia: Mostly secondary to COPD and probably obstructive sleep apnea treat underlying disease. Discussion: Patient is doing very well very stable his respiratory failure has improved significantly will be discharged home today to follow-up in the office in the next few days arrangement for nebulizer machine and combination of DuoNeb and Pulmicort will be made. Hospital course: Patient admitted to the hospital on 03/04/2024 apparently travel abroad and irrigation. And become sick last few days of his trip become with worsening shortness of breath cough wheezes low-grade temperature. His tested positive for COVID-19 but after being symptomatic for few days his test came back negative. Patient continued to be quite symptomatic with shortness of breath cough wheezes and severe hypoxia and up coming to the emergency department at [facility] where was seen and evaluated his COVID-19 is negative so that is influenza and RSV. Chest x-ray shows signs and symptoms of mild COPD but mostly bronchitis. He was started on Solu-Medrol initially inside updraft treatment O2 and supportive care. Procalcitonin was negative despite starting him initially on Rocephin and azithromycin antibiotic.. Patient was seen pulmonary agree with the current plan try to send patient home early and start tapering dose of Solu-Medrol patient relapsed very fast, quite hypoxic and symptomatic Came through the weekend till the 14 patient was kept on steroid IV which will be switched to oral arrangement for nebulizer machine and solution fo r nebulizer was made patient be discharged home on 03/08/2024. Time spent on patient discharge was over 35 minutes. Patient Condition at Discharge: Fair Plan - Discharge Summary Discharge Rx Participant: No New Discharge Prescriptions: New Albuterol Inhaler [Ventolin Hfa Inhaler] 1 - 2 puff INHALATION Q6H PRN #1 each PRN Reason: Shortness Of Breath Albuterol Nebulized [Ventolin Nebulized] 2.5 mg INHALATION RT-QID #120 ml predniSONE 10 mg PO DIRECTED #20 tab hydrALAZINE HCL [Apresoline] 25 mg PO Q6H PRN #30 tab PRN Reason: Blood Pressure - High Budesonide-Formot 160-4.5 Mcg [Symbicort 160-4.5 Mcg Inhaler] 2 puff INHALATION RT-BID #1 each Continue Propranolol HCl [Propranolol HCl ER] 80 mg PO DAILY Fluorouracil 5% Cream 1 dose TOPICAL DIRECTED Fluticasone Nasal [place] [Flonase Nasal [place]] 2 spray EA NOSTRIL DAILY PRN PRN Reason: Allergy Symptoms Triamcinolone 0.5% Cream [Kenalog 0.5% Cream] 1 applic TOPICAL Q72H PRN PRN Reason: EAR CANAL ITCHING Codeine Phosphate/Guaifenesin [Codeine Phosphate/Guaifenesin 10-100 mg/5 ml] 5 ml PO Q6H PRN PRN Reason: Cough Azithromycin [Zithromax Z Pack] See Taper PO DIRECTED Atorvastatin [Lipitor] 40 mg PO DAILY metFORMIN HCL 500 mg PO BID Meloxicam [Mobic] 7.5 mg PO BID Citalopram Hydrobromide [CeleXA] 40 mg PO DAILY rOPINIRole HCL [Requip] 1 mg PO BID Montelukast [Singulair] 10 mg PO HS predniSONE [Deltasone] 40 mg PO DAILY Discharge Medication List Albuterol Inhaler [Ventolin Hfa Inhaler] 1 - 2 puff INHALATION Q6H PRN #1 each 03/04/24 [Rx] Atorvastatin [Lipitor] 40 mg PO DAILY 03/04/24 [History] Azithromycin [Zithromax Z Pack] See Taper PO DIRECTED 03/04/24 [History] Citalopram Hydrobromide [CeleXA] 40 mg PO DAILY 03/04/24 [History] Codeine Phosphate/Guaifenesin [Codeine Phosphate/Guaifenesin 10-100 mg/5 ml] 5 ml PO Q6H PRN 03/04/24 [History] Fluorouracil 5% Cream 1 dose TOPICAL DIRECTED 03/04/24 [History] Fluticasone Nasal [place] [Flonase Nasal [place]] 2 spray EA NOSTRIL DAILY PRN 03/04/24 [History] Meloxicam [Mobic] 7.5 mg PO BID 03/04/24 [History] Montelukast [Singulair] 10 mg PO HS 03/04/24 [History] Propranolol HCl [Propranolol HCl ER] 80 mg PO DAILY 03/04/24 [History] Triamcinolone 0.5% Cream [Kenalog 0.5% Cream] 1 applic TOPICAL Q72H PRN 03/04/24 [History] metFORMIN HCL 500 mg PO BID 03/04/24 [History] predniSONE 10 mg PO DIRECTED #20 tab 03/04/24 [Rx] predniSONE [Deltasone] 40 mg PO DAILY 03/04/24 [History] rOPINIRole HCL [Requip] 1 mg PO BID 03/04/24 [History] Albuterol Nebulized [Ventolin Nebulized] 2.5 mg INHALATION RT-QID #120 ml 03/08/24 [Rx] Budesonide-Formot 160-4.5 Mcg [Symbicort 160-4.5 Mcg Inhaler] 2 puff INHALATION RT-BID #1 each 03/08/24 [Rx] hydrALAZINE HCL [Apresoline] 25 mg PO Q6H PRN #30 tab 03/08/24 [Rx] Follow up Appointment(s)/Referral(s): [facility] [NON-STAFF] - As Needed (nebulizer) Thomas Montez MD [Primary Care Provider] - 03/15/24 2:30 pm Ambulatory/Diagnostic Orders: Nebulizer - to be accompanied by form#[id number](adult) or #[id number](peds) [DME.AMB1] Location: None Selected Patient Instructions/Handouts: Acute Bronchitis (ED) Discharge Disposition: HOME SELF-CARE
== END 2024-03-08 12:25 | disposition home or self-care (01) | DRG 177 ==
LOC: EC 07:12 → 4SSUR 13:54
PROVIDERS: ADMIT Internal Medicine Geriatric Medicine; ATTEND Internal Medicine Geriatric Medicine
DX: U07.1 COVID-19 (principal); J96.01 Acute respiratory failure with hypoxia; I69.351 Hemiplegia and hemiparesis following cerebral infarction affecting right dominant side; J44.1 Chronic obstructive pulmonary disease with (acute) exacerbation; J44.0 Chronic obstructive pulmonary disease with (acute) lower respiratory infection; I27.20 Pulmonary hypertension, unspecified; J20.8 Acute bronchitis due to other specified organisms; I10 Essential (primary) hypertension; E11.40 Type 2 diabetes mellitus with diabetic neuropathy, unspecified; F32.A Depression, unspecified; G25.81 Restless legs syndrome; D75.1 Secondary polycythemia; N40.0 Benign prostatic hyperplasia without lower urinary tract symptoms; E78.5 Hyperlipidemia, unspecified; G25.0 Essential tremor; G47.33 Obstructive sleep apnea (adult) (pediatric); Z79.84 Long term (current) use of oral hypoglycemic drugs; Z79.899 Other long term (current) drug therapy; Z79.1 Long term (current) use of non-steroidal anti-inflammatories (NSAID); Z87.891 Personal history of nicotine dependence
CPT/HCPCS: 71046; 71275; 80053; 83880; 84145; 84484; 85025; 85027; 85379; 87636; 93005; 93306; 94640; 94760; 96365; 96375; 99285

== ENCOUNTER → 2024-04-06 | Outpatient (CLI) | payer MEDICARE ==
[2024-04-06 14:02] VITALS: BP 149/89; PULSE 56; RESP 16; TEMP 98.1
--- NOTE | 2024-04-06 14:32 | P.SLEEP ---
History of Present Illness H&P Date: 04/06/24 This is a 69-year-old male patient referred to me for sleep apnea evaluation. The patient has having aggressive fatigue and sleepiness during the day. His current Salem score is at 17. He can easily fall asleep at night naps during the day especially when he is inactive. His weight has been up over the past 10 years and is gained approximately 50 pounds. His current body mass index is 34.9. He has history of snoring and he has been told that he quits breathing in the middle of the night and he wakes up tired and sleepy. At times, he wakes up in the middle of the night and cannot go back to sleep. He has to sit up as the patient gets short of breath. He is not sure whether he is waking up choking or gasping for air. He is going to bed at around 10 PM, waking up 3 to 4 AM in the morning. He is averaging around 5 hours of sleep. He does take naps during the day. He wakes up at least 4-5 times in the middle of the night. He has had a previous history of stroke which has resulted in some speech deficits and the patient has chronic left-sided sensory and motor changes with ongoing tremors. He is currently on a combination of Requip and propranolol regarding his tremors. He is diabetic and he has hyperlipidemia in addition and he was recently hospitalized for COVID-19 infection from which she has recovered. No substance abuse. No alcoholism. No nightmares. No sleep around the bed. No hallucinations. No cataplexy. No anxiety or depression. No reported sleepw alking or sleep talking or any other parasomnias. No anxiety. No depression. Review of Systems Constitutional: Reports daytime sleepiness, Reports fatigue, Reports weight gain Eyes: denies as per HPI, denies blurred vision, denies bulging eye, denies decreased vision, denies diplopia, denies discharge, denies dry eye, denies irritation, denies itching, denies pain, denies photophobia, denies loss of peripheral vision, denies loss of vision, denies tunnel vision/blind spots Ears: bilateral: decreased hearing, deny: ear discharge, earache, tinnitus Ears, nose, mouth and throat: Reports as per HPI Breasts: absent: as per HPI, gynecomastia Respiratory: Reports as per HPI, Reports snoring Gastrointestinal: Reports as per HPI Genitourinary: Reports as per HPI Musculoskeletal: Reports as per HPI Musculoskeletal: absent: ankle pain, ankle stiffness, ankle swelling, as per HPI, elbow pain, elbow stiffness, elbow swelling, foot pain, foot stiffness, foot swelling, hand pain, hand stiffness, hand swelling, hip pain, hip stiffness, hip swelling, knee pain, knee stiffness, knee swelling, shoulder pain, shoulder stiffness, shoulder swelling, wrist pain, wrist stiffness, wrist swelling Integumentary: Reports as per HPI Neurological: Reports gait dysfunction, Reports hearing difficulties, Reports numbness, Reports weakness (Left-sided) Psychiatric: Reports change in sleep habits, Reports hypersomnia, Reports sleep disturbances Endocrine: Reports fatigue Hematologic/Lymphatic: Reports as per HPI Allergic/Immunologic: Reports as per HPI Past Medical History Past Medical History: CVA/TIA, Hyperlipidemia, Hypertension, Neurologic Disorder Additional Past Medical History / Comment(s): Neuropathy, allergies History of Any Multi-Drug Resistant Organisms: None Reported Past Surgical History: Cholecystectomy, Orthopedic Surgery Additional Past Surgical History / Comment(s): BLE sampson with treatment at the wound center, tubes bilateral eas Past Anesthesia/Blood Transfusion Reactions: No Reported Reaction Past Psychological History: Depression Smoking Status: Former smoker Past Alcohol Use History: Occasional Past Drug Use History: None Reported - Past Family History Father Family Medical History: Cancer, Coronary Artery Disease (CAD), Hypertension Medications and Allergies Home Medications Medication Instructions Recorded Confirmed Type Albuterol Inhaler [Ventolin Hfa 1 - 2 puff INHALATION Q6H PRN #1 03/04/24 Rx Inhaler] each Atorvastatin [Lipitor] 40 mg PO DAILY 03/04/24 04/06/24 History Azithromycin [Zithromax Z Pack] See Taper PO DIRECTED 03/04/24 03/04/24 History Citalopram Hydrobromide [CeleXA] 40 mg PO DAILY 03/04/24 04/06/24 History Codeine Phosphate/Guaifenesin 5 ml PO Q6H PRN 03/04/24 03/04/24 History [Codeine Phosphate/Guaifenesin 10-100 mg/5 ml] Fluorouracil 5% Cream 1 dose TOPICAL DIRECTED 03/04/24 03/04/24 History Fluticasone Nasal [place] [Flonase 2 spray EA NOSTRIL DAILY PRN 03/04/24 03/04/24 History Nasal [place]] Meloxicam [Mobic] 7.5 mg PO BID 03/04/24 04/06/24 History Montelukast [Singulair] 10 mg PO HS 03/04/24 03/04/24 History Propranolol HCl [Propranolol HCl 80 mg PO DAILY 03/04/24 03/04/24 History ER] Triamcinolone 0.5% Cream [Kenalog 1 applic TOPICAL Q72H PRN 03/04/24 03/04/24 History 0.5% Cream] metFORMIN HCL 500 mg PO BID 03/04/24 03/04/24 History predniSONE 10 mg PO DIRECTED #20 tab 03/04/24 Rx predniSONE [Deltasone] 40 mg PO DAILY 03/04/24 03/04/24 History rOPINIRole HCL [Requip] 1 mg PO BID 03/04/24 04/06/24 History Albuterol Nebulized [Ventolin 2.5 mg INHALATION RT-QID #120 ml 03/08/24 Rx Nebulized] Budesonide-Formot 160-4.5 Mcg 2 puff INHALATION RT-BID #1 each 03/08/24 Rx [Symbicort 160-4.5 Mcg Inhaler] hydrALAZINE HCL [Apresoline] 25 mg PO Q6H PRN #30 tab 03/08/24 Rx Empagliflozin [Jardiance] 10 mg PO DAILY 04/06/24 04/06/24 History Propranolol HCl [Inderal Xl] 80 mg PO DAILY 04/06/24 04/06/24 History Allergies Allergy/AdvReac Type Severity Reaction Status Date / Time No Known Allergies Allergy Verified 03/04/24 11:10 Physical Exam Vitals: Vital Signs Temp Pulse Resp BP Pulse Ox 04/06/24 14:01 98.1 F 56 L 16 149/89 93 L Intake and Output 04/05/24 04/06/24 04/06/24 22:59 06:59 14:59 Other: Weight 104.78 kg The patient appeared well nourished and normally developed. Vital signs as documented. Calm and comfortable with a body mass index of 34.9. Salem score is at 17. Weight is 231 pounds. Head exam is unremarkable. No scleral icterus or corneal arcus noted. Neck is without jugular venous distension, thyromegaly, or carotid bruits. Carotid upstrokes are brisk bilaterally. Mallampati class I-II Lungs are clear to auscultation and percussion. Cardiac exam reveals the PMI to be normally sized and situated. Rhythm is regular. First and second heart sounds normal. No murmurs, rubs or gallops. Abdominal exam reveals normal bowel sounds, no masses, no organomegaly and no aortic enlargement. Extremities are nonedematous and both femoral and pedal pulses are normal. Examination of the skin revealed no evidence of significant rashes, suspicious appearing nevi or other concerning lesions. Neurologically, the patient is awake and alert and the patient does have left- sided weakness, motor deficits related to his stroke and sensory deficits patient left upper extremity and some his left lower extremity. The patient has also difficulties with speech. No facial asymmetry.. Cranial nerves are essentially intact. Assessment and Plan Plan: Chronic hypersomnia with an Salem score of 17. Rule out underlying obstructive sleep apnea based on history of snoring and sleep fragmentation frequent nocturnal arousals. History of snoring CVA with left-sided weakness and ongoing motor and sensory deficits in the left upper and left lower extremity Chronic tremors Diabetes mellitus type 2 Hyperlipidemia Previous history of COVID-19 infection Plan Increase diagnosis of obstructive sleep apnea based on the reported history. The patient is currently averaging around 5 hours of sleep at night. Nevertheless, he is taking naps during the day and is averaging overall 6 to 7 hours of sleep on a daily basis. His body mass index is 34.9. Salem score is at 17. Comorbidities include CVA, diabetes and hypertension. Will need further investigation and patient will be set up for a screening polysomnography and will make further recommendation of treatment options based on the findings. Will continue to follow. Sleep Note - Sleep Data ESS Total: 17 - Sleep Note Sleep Note: Temperature: 98.1 F Pulse Rate: 56 Respiratory Rate: 16 Blood Pressure: 149/89 SpO2: 93 Height: 5 ft 8.2 in Weight: 104.78 kg BMI: Neck Circumference: 17.2
== END ==
LOC: 3 N SLEEP 13:29
PROVIDERS: ATTEND Internal Medicine Critical Care Medicine
DX: G47.10 Hypersomnia, unspecified (principal); R06.83 Snoring; I69.954 Hemiplegia and hemiparesis following unspecified cerebrovascular disease affecting left non-dominant side; R25.1 Tremor, unspecified; E11.9 Type 2 diabetes mellitus without complications; E78.5 Hyperlipidemia, unspecified; Z86.16 Personal history of COVID-19; Z79.85 Long-term (current) use of injectable non-insulin antidiabetic drugs; Z79.84 Long term (current) use of oral hypoglycemic drugs
CPT/HCPCS: 99211

== ENCOUNTER 2024-04-11 19:19 | Outpatient (CLI) | payer MEDICARE ==
--- NOTE | 2024-04-26 19:21 | P.PCN ---
Date of Procedure: 04/11/24 Operative Findings: Polysomnography report History This is a 69-year-old male patient referred to me for sleep apnea evaluation. The patient has having aggressive fatigue and sleepiness during the day. His current [place] score is at 17. He can easily fall asleep at night naps during the day especially when he is inactive. His weight has been up over the past 10 years and is gained approximately 50 pounds. His current body mass index is 34.9. He has history of snoring and he has been told that he quits breathing in the middle of the night and he wakes up tired and sleepy. At times, he wakes up in the middle of the night and cannot go back to sleep. He has to sit up as the patient gets short of breath. He is not sure whether he is waking up choking or gasping for air. He is going to bed at around 10 PM, waking up 3 to 4 AM in the morning. He is averaging around 5 hours of sleep. He does take naps during the day. He wakes up at least 4-5 times in the middle of the night. He has had a previous history of stroke which has resulted in some speech deficits and the patient has chronic left-sided sensory and motor changes with ongoing tremors. He is currently on a combination of Requip and propranolol regarding his tremors. He is diabetic and he has hyperlipidemia in addition and he was recently hospitalized for COVID-19 infection from which she has recovered. No substance abuse. No alcoholism. No nightmares. No sleep around the bed. No hallucinations. No cataplexy. No anxiety or depression. No reported sleepwalking or sleep talking or any other parasomnias. No anxiety. No depression. Pertinent physical findings The patient has a body mass index of 35.1 and the weight is 231 pounds Technical description The patient was studied using a standard complex polysomnography protocol that included recording of the Lead II EKG, Central, occipital and frontal EEG, right and left outer canthus EOG, submental EMG, right and left anterior tibialis EMG, respiratory airflow by thermocouple and or pressure/flow transducer, respiratory efforts by abdominal and thoracic PVDF belts, oxygen saturation by cable oximetry. Position by observation synchronized the PSG. Equipment used: [employer]. Sleep architecture The total recording duration was 432 minutes and the total sleep time was 365.0 minutes. The overall sleep efficiency was 84.5%. Latency to sleep onset was 20.5 minutes. Latency to REM sleep was 155 minutes. The sleep architecture was Raised by 24.5% stage I, 64.5% stage II, 1.8% stage III and a total of 9.2% REM sleep. The wake after sleep onset time was 46 minutes. The total arousal index was 47.7. Respiratory analysis The sleep study showed a total of 438 events of which 362 were obstructive apneas, 8 with mixed apneas and 68 were obstructive hypopneas. The resulting AHI was 71.5 consistent with severe obstructive sleep apnea. The patient also had a total of 5 central apneas with a central apnea index of 0.8. Oxygenation analysis The baseline pulse ox while awake was 93%. Lowest oxygen saturation was 80% and the patient spent approximately 10 minutes of the sleep time below pulse ox of 89%. Oxygen saturations were worse during REM sleep with a lowest pulse ox of 80% during REM. Sleep continuity summary The patient had a total of 290 arousal events with an arousal index of 47.7. Respiratory arousal index was 24.8 Periodic limb movement summary A total of 109 periodic limb movement activity was noted with an index of 17.9. There was a total of 8 periodic limb movements with arousals with an index of 1.3 Cardiac summary The average heart rate was 57 with a minimum heart rate of 55 and a maximum heart rate of 60 Assessment Severe symptomatic obstructive sleep apnea with an AHI of 71.5 Mild nocturnal oxygen desaturation with a minimum pulse ox of 80% during REM Abnormal sleep architecture with over representation of stage I and stage II sleep and diminished delta wave and REM High arousal index related to obstructive sleep apnea Chronic hypersomnia with an [place] score of 17. This is related to obstructive sleep apnea History of snoring CVA with left-sided weakness and ongoing motor and sensory deficits in the left upper and left lower extremity Chronic tremors Diabetes mellitus type 2 Hyperlipidemia Previous history of COVID-19 infection Plan Proceed with CPAP titration regarding severe symptomatic obstructive sleep apnea The patient is currently averaging around 5 hours of sleep at night. Nevertheless, he is taking naps during the day and is averaging overall 6 to 7 hours of sleep on a daily basis. This should improve with CPAP therapy and the patient is to consolidate his sleep hours mainly at nighttime Encourage weight loss Optimize sleep hygiene measures Maintain regular sleep schedule Treat comorbidities include CVA, diabetes and hypertension. Will continue to follow.
== END 2024-04-12 05:15 | disposition home or self-care (01) ==
LOC: 3 N SLEEP 19:19
PROVIDERS: ATTEND Internal Medicine Critical Care Medicine
DX: G47.33 Obstructive sleep apnea (adult) (pediatric) (principal); G47.36 Sleep related hypoventilation in conditions classified elsewhere; G47.52 REM sleep behavior disorder; E11.9 Type 2 diabetes mellitus without complications; E78.5 Hyperlipidemia, unspecified; R25.1 Tremor, unspecified; I69.354 Hemiplegia and hemiparesis following cerebral infarction affecting left non-dominant side; Z86.16 Personal history of COVID-19
CPT/HCPCS: 95810

== ENCOUNTER 2024-05-30 19:19 | Outpatient (CLI) | payer MEDICARE ==
--- NOTE | 2024-06-08 06:04 | P.PCN ---
Date of Procedure: 05/30/24 Operative Findings: CPAP titration report Date of service is 05/30/2024 History This is a 69-year-old male patient referred to me for sleep apnea evaluation. The patient has having aggressive fatigue and sleepiness during the day. His current [place] score is at 17. He can easily fall asleep at night naps during the day especially when he is inactive. His weight has been up over the past 10 years and is gained approximately 50 pounds. His current body mass index is 34.9. He has history of snoring and he has been told that he quits breathing in the middle of the night and he wakes up tired and sleepy. At times, he wakes up in the middle of the night and cannot go back to sleep. He has to sit up as the patient gets short of breath. He is not sure whether he is waking up choking or gasping for air. He is going to bed at around 10 PM, waking up 3 to 4 AM in the morning. He is averaging around 5 hours of sleep. He does take naps during the day. He wakes up at least 4-5 times in the middle of the night. He has had a previous history of stroke which has resulted in some speech deficits and the patient has chronic left-sided sensory and motor changes with ongoing tremors. He is currently on a combination of Requip and propranolol regarding his tremors. He is diabetic and he has hyperlipidemia in addition and he was recently hospitalized for COVID-19 infection from which she has recovered. No substance abuse. No alcoholism. No nightmares. No sleep around the bed. No hallucinations. No cataplexy. No anxiety or depression. No reported sleepwalking or sleep talking or any other parasomnias. No anxiety. No depression. Based on this, the patient underwent a polysomnography 04/11/2024 and the patient was diagnosed having severe [place] with an AHI of 71.5 and the patient is coming in to undergo a CPAP titration study. Pertinent physical findings The patient has a body mass index of 35.1 and the weight is 231 pounds Technical description The patient was studied using a standard complex polysomnography protocol that included recording of the Lead II EKG, Central, occipital and frontal EEG, right and left outer canthus EOG, submental EMG, right and left anterior tibialis EMG, respiratory airflow by thermocouple and or pressure/flow transducer, respiratory efforts by abdominal and thoracic PVDF belts, oxygen saturation by cable oximetry. Position by observation synchronized the PSG. Equipment used: [email or web address]. Stepwise CPAP titration was done to eliminate all obstructive respiratory events. CPAP titration The patient was initiated on CPAP therapy initially at a pressure of 6 cm of water and the pressure was gradually increased by increments of 1 cm to reach a maximum CPAP pressure of 12 cm of water. I carefully reviewed the CPAP titration taken account the patient's sleep stage and body position. The patient was having some limited nocturnal oxygen desaturations and O2 was added to liters. The patient encountered REM sleep. The patient also was measured and studied in various body position including supine body position. I received a pressure of 8 cm of water, the patient was encountering some mild nocturnal oxygen saturation. Nevertheless, the patient had effective elimination of the obstructive respiratory events. Sleep continuity summary The patient had a total of 46 arousals with an index of 11.1. The respiratory arousal index was 0.5 Periodic limb movements A total of 187 periodic limb movement activity was counted with an index of 45. There was a total of 8 periodic limb movement activity with arousals with an index of 1.9 Cardiac summary Average heart rate was 51 without any significant arrhythmias Assessment Severe symptomatic obstructive sleep apnea with an AHI of 71.5, the patient underwent a successful CPAP titration. Abnormal sleep architecture with over representation of stage I and stage II sleep and diminished delta wave and REM High arousal index related to obstructive sleep apnea, improved with CPAP therapy Chronic hypersomnia with an [place] score of 17. This is related to obstructive sleep apnea History of snoring CVA with left-sided weakness and ongoing motor and sensory deficits in the left upper and left lower extremity Chronic tremors Diabetes mellitus type 2 Hyperlipidemia Previous history of COVID-19 infection Plan Proceed with CPAP therapy at a pressure of 8 cm of water and further adjustments in the CPAP which will be done accordingly. The patient is going to be offered an AirFit F20 fullface mask, large size The patient is currently averaging around 5 hours of sleep at night. Nevertheless, he is taking naps during the day and is averaging overall 6 to 7 h ours of sleep on a daily basis. This should improve with CPAP therapy and the patient is to consolidate his sleep hours mainly at nighttime Encourage weight loss Optimize sleep hygiene measures Maintain regular sleep schedule Treat comorbidities include CVA, diabetes and hypertension. Will continue to follow And the patient will see me back in 30 to 90 days to assess clinical response and compliancy.
== END 2024-05-31 05:10 | disposition home or self-care (01) ==
LOC: 3 N SLEEP 19:19
PROVIDERS: ATTEND Internal Medicine Critical Care Medicine
DX: G47.33 Obstructive sleep apnea (adult) (pediatric) (principal); G47.10 Hypersomnia, unspecified; I69.354 Hemiplegia and hemiparesis following cerebral infarction affecting left non-dominant side; I10 Essential (primary) hypertension; E78.5 Hyperlipidemia, unspecified; E11.9 Type 2 diabetes mellitus without complications; R25.1 Tremor, unspecified; Z86.16 Personal history of COVID-19; Z99.89 Dependence on other enabling machines and devices
CPT/HCPCS: 95811